=== PATIENT | female | born 1950 | race Caucasian/White ===

== ENCOUNTER 2018-07-24 08:40 | Observation (INO) | payer MEDICARE, BC ==
[2018-07-24] MEDS ORDERED: Sodium Chloride 0.9% 1,000 ML IV ONE (08:44)
[2018-07-24] MEDS ORDERED: Sodium Chloride 0.9% 10 ML Syringe FLUSH PRN ×2 (08:44→09:06)
[2018-07-24] MEDS ORDERED: Sodium Chloride 0.9% 2.5 ML Syringe FLUSH PRN ×2 (08:44→09:06)
--- NOTE | 2018-07-24 08:44 | EDM.PDOC ---
ED HPI GENERAL MEDICAL PROBLEM - General Chief Complaint: Cardiovascular Problem Stated Complaint: CLINIC Time Seen by Provider: 07/24/18 08:41 Source of Information: Reports: Patient History Limitations: Reports: No Limitations - History of Present Illness INITIAL COMMENTS - FREE TEXT/NARRATIVE: History of present illness: []She was recently put on any antihypertensive medicine and now presents hypotensive with a systolic blood pressure of 60 in the clinic during follow-up visit today. She was started on amlodipine this week and takes it at night. She has not taken any medications this morning. She was dizzy at the time and states that around 7 AM this morning she did have an episode of chest pain across her chest associated with dizziness, shortness of breath or sweating. She also complains of urinating several times during the night last night which she normally does not do. Patient does not currently have any chest pain. Review of systems: As per history of present illness and below otherwise all systems reviewed and negative. Past medical history: As per history of present illness and as reviewed below otherwise noncontributory. Surgical history: As per history of present illness and as reviewed below otherwise noncontributory. Social history: No reported history of drug or alcohol abuse. Family history: As per history of present illness and as reviewed below otherwise noncontributory. Physical exam: General: Well developed, well nourished in NAD HEENT: Atraumatic, normocephalic, pupils reactive, negative for conjunctival pallor or scleral icterus, mucous membranes moist, throat clear, neck supple, nontender, trachea midline. Lungs: Clear to auscultation, breath sounds equal bilaterally, chest nontender. Heart: S1S2, regular, negative for clicks, rubs, or JVD. Abdomen: NABS, Soft, nondistended, nontender. Negative for masses or hepatosplenomegaly. Negative for costovertebral tenderness. Pelvis: Stable nontender. Genitourinary: Deferred. Rectal: Deferred. Extremities: Atraumatic, negative for cords or calf pain. Neurovascular unremarkable. Neuro: Awake, alert, oriented. Cranial nerves II through XII unremarkable. Cerebellum unremarkable. Motor and sensory unremarkable throughout. Exam nonfocal. Skin:warm and dry Diagnostics: EKG, CBC, chemistry, troponin, chest x-ray UA Therapeutics: None ED Course: Stable Impression: Chest pain, uncontrolled blood pressure Prescriptions: None Plan: Admit for observation chest pain rule out Definitive disposition and diagnosis as appropriate pending reevaluation and review of above. Headache Pain Score (Numeric/FACES): 2 - Related Data Allergies Allergy/AdvReac Type Severity Reaction Status Date / Time No Known Allergies Allergy Verified 07/24/18 08:48 Home Meds: Home Meds . [No Known Home Meds] 07/24/18 [History] Past Medical History HEENT History: Reports: Other (See Below) Oncologic (Cancer) History: Reports: Squamous Cell Carcinoma Other Oncologic History: 2003-remission - Past Surgical History Oncologic Surgical History: Reports: None, Other (See Below) Social & Family History - Family History Cardiac: Reports: Heart Valve Replacement Respiratory: Reports: Asthma Endocrine/Metabolic: Reports: Diabetes, type II - Caffeine Use Caffeine Use: Reports: Coffee ED ROS GENERAL - Review of Systems Review Of Systems: ROS reveals no pertinent complaints other than HPI. ED EXAM, GENERAL - Physical Exam Exam: See Below (See history of present illness) Course - Vital Signs Last Recorded V/S: Last Vital Signs Temp 97.4 F 07/24/18 08:48 Pulse 80 07/24/18 12:21 Resp 14 07/24/18 12:21 BP 180/115 H 07/24/18 12:21 Pulse Ox 98 07/24/18 12:21 - Orders/Labs/Meds Orders: Active Orders 24 hr Category Date Time Status EKG Documentation Completion [RC] STAT Care 07/24/18 08:44 Active EKG Documentation Completion [RC] STAT Care 07/24/18 09:07 Inactive Sodium Chloride 0.9% [Saline Flush] Med 07/24/18 08:44 Active 10 ml FLUSH ASDIRECTED PRN Sodium Chloride 0.9% [Saline Flush] Med 07/24/18 09:06 Active 10 ml FLUSH ASDIRECTED PRN Sodium Chloride 0.9% [Saline Flush] Med 07/24/18 08:44 Active 2.5 ml FLUSH ASDIRECTED PRN Sodium Chloride 0.9% [Saline Flush] Med 07/24/18 09:06 Active 2.5 ml FLUSH ASDIRECTED PRN Saline Lock Insert [OM.PC] Stat Oth 07/24/18 08:44 Ordered Saline Lock Insert [OM.PC] Stat Ot 07/24/18 09:07 Ordered Medication Orders Acetaminophen (Tylenol) 650 mg PO Q4H PRN PRN Reason: Pain (Mild 1-3)/fever Enoxaparin Sodium (Lovenox) 40 mg SUBCUT Q24H [facility] Last Admin: 07/24/18 12:16 Dose: 40 mg Oxycodone HCl (Oxycodone) 5 mg PO Q4H PRN PRN Reason: Pain (moderate 4-6) Sodium Chloride (Saline Flush) 10 ml FLUSH ASDIRECTED PRN PRN Reason: Keep Vein Open Last Admin: 07/24/18 09:05 Dose: 10 ml Sodium Chloride (Saline Flush) 2.5 ml FLUSH ASDIRECTED PRN PRN Reason: Keep Vein Open Last Admin: 07/24/18 09:05 Dose: 2.5 ml Sodium Chloride (Saline Flush) 10 ml FLUSH ASDIRECTED PRN PRN Reason: Keep Vein Open Last Admin: 07/24/18 09:12 Dose: 10 ml Sodium Chloride (Saline Flush) 2.5 ml FLUSH ASDIRECTED PRN PRN Reason: Keep Vein Open Last Admin: 07/24/18 09:13 Dose: 2.5 ml Temazepam (Restoril) 15 mg PO BEDTIME PRN PRN Reason: Sleep Labs: Laboratory Tests 07/24/18 07/24/18 07/24/18 Range/Units 08:40 08:45 08:45 WBC 6.59 (4.0-11.0) K/uL RBC 4.62 (4.30-5.90) M/uL Hgb 13.7 (12.0-16.0) g/dL Hct 41.9 (36.0-46.0) % MCV 90.7 (80.0-98.0) fL MCH 29.7 (27.0-32.0) pg MCHC 32.7 (31.0-37.0) g/dL RDW Std Deviation 46.2 (28.0-62.0) fl RDW Coeff of Miley 14 (11.0-15.0) % Plt Count 200 (150-400) K/uL MPV 10.10 (7.40-12.00) fL Neut % (Auto) 81.7 H (48.0-80.0) % Lymph % (Auto) 8.0 L (16.0-40.0) % E[place] % (Auto) 9.6 (0.0-15.0) % Eos % (Auto) 0.2 (0.0-7.0) % Baso % (Auto) 0.5 (0.0-1.5) % Neut # (Auto) 5.4 (1.4-5.7) K/uL Lymph # (Auto) 0.5 L (0.6-2.4) K/uL [place] # (Auto) 0.6 (0.0-0.8) K/uL Eos # (Auto) 0.0 (0.0-0.7) K/uL Baso # (Auto) 0.0 (0.0-0.1) K/uL Nucleated RBC % 0.0 /100WBC Nucleated RBCs # 0 K/uL Sodium 137 (136-145) mmol/L Potassium 3.9 (3.5-5.1) mmol/L Chloride 99 (98-107) mmol/L Carbon Dioxide 27.3 (21.0-32.0) mmol/L BUN 15 (7.0-18.0) mg/dL Creatinine 0.9 (0.6-1.0) mg/dL Est Cr Clr Drug Dosing 55.33 mL/min Estimated GFR (MDRD) > 60.0 ml/min Glucose 118 H (74-106) mg/dL Calcium 9.1 (8.5-10.1) mg/dL Total Bilirubin 0.5 (0.2-1.0) mg/dL AST 25 (15-37) IU/L ALT 22 (14-63) IU/L Alkaline Phosphatase 62 (46-116) U/L Troponin I (0.000-0.056) ng/mL Total Protein 7.6 (6.4-8.2) g/dL Albumin 4.0 (3.4-5.0) g/dL Globulin 3.6 (2.6-4.0) g/dL Albumin/Globulin Ratio 1.1 (0.9-1.6) Urine Color YELLOW Urine Appearance HAZY Urine pH 7.0 (5.0-8.0) Ur Specific [place] 1.015 (1.001-1.035) Urine Protein NEGATIVE (NEGATIVE) mg/dL Urine Glucose (UA) NEGATIVE (NEGATIVE) mg/dL Urine Ketones NEGATIVE (NEGATIVE) mg/dL Urine Occult Blood TRACE-INTACT H (NEGATIVE) Urine Nitrite NEGATIVE (NEGATIVE) Urine Bilirubin NEGATIVE (NEGATIVE) Urine Urobilinogen 1.0 (<2.0) EU/dL Ur Leukocyte Esterase NEGATIVE (NEGATIVE) Urine RBC 0-3 (0-2/HPF) Urine WBC 0-3 (0-5/HPF) Ur Epithelial Cells FEW (NONE-FEW) Urine Bacteria FEW (NEGATIVE) 07/24/18 Range/Units 08:45 WBC (4.0-11.0) K/uL RBC (4.30-5.90) M/uL Hgb (12.0-16.0) g/dL Hct (36.0-46.0) % MCV (80.0-98.0) fL MCH (27.0-32.0) pg MCHC (31.0-37.0) g/dL RDW Std Deviation (28.0-62.0) fl RDW Coeff of Miley (11.0-15.0) % Plt Count (150-400) K/uL MPV (7.40-12.00) fL Neut % (Auto) (48.0-80.0) % Lymph % (Auto) (16.0-40.0) % E[place] % (Auto) (0.0-15.0) % Eos % (Auto) (0.0-7.0) % Baso % (Auto) (0.0-1.5) % Neut # (Auto) (1.4-5.7) K/uL Lymph # (Auto) (0.6-2.4) K/uL [place] # (Auto) (0.0-0.8) K/uL Eos # (Auto) (0.0-0.7) K/uL Baso # (Auto) (0.0-0.1) K/uL Nucleated RBC % /100WBC Nucleated RBCs # K/uL Sodium (136-145) mmol/L Potassium (3.5-5.1) mmol/L Chloride (98-107) mmol/L Carbon Dioxide (21.0-32.0) mmol/L BUN (7.0-18.0) mg/dL Creatinine (0.6-1.0) mg/dL Est Cr Clr Drug Dosing mL/min Estimated GFR (MDRD) ml/min Glucose (74-106) mg/dL Calcium (8.5-10.1) mg/dL Total Bilirubin (0.2-1.0) mg/dL AST (15-37) IU/L ALT (14-63) IU/L Alkaline Phosphatase (46-116) U/L Troponin I < 0.050 (0.000-0.056) ng/mL Total Protein (6.4-8.2) g/dL Albumin (3.4-5.0) g/dL Globulin (2.6-4.0) g/dL Albumin/Globulin Ratio (0.9-1.6) Urine Color Urine Appearance Urine pH (5.0-8.0) Ur Specific [place] (1.001-1.035) Urine Protein (NEGATIVE) mg/dL Urine Glucose (UA) (NEGATIVE) mg/dL Urine Ketones (NEGATIVE) mg/dL Urine Occult Blood (NEGATIVE) Urine Nitrite (NEGATIVE) Urine Bilirubin (NEGATIVE) Urine Urobilinogen (<2.0) EU/dL Ur Leukocyte Esterase (NEGATIVE) Urine RBC (0-2/HPF) Urine WBC (0-5/HPF) Ur Epithelial Cells (NONE-FEW) Urine Bacteria (NEGATIVE) Meds: Medications Generic Name Dose Route Start Last Admin Trade Name Freq PRN Reason Stop Dose Admin Acetaminophen 650 mg 07/24/18 11:42 Tylenol PO Q4H PRN Pain (Mild 1-3)/fever Enoxaparin Sodium 40 mg 07/24/18 11:45 07/24/18 12:16 Lovenox SUBCUT 40 mg Q24H BRI Administration Oxycodone HCl 5 mg 07/24/18 11:42 Oxycodone PO Q4H PRN Pain (moderate 4-6) Sodium Chloride 10 ml 07/24/18 08:44 07/24/18 09:05 Saline Flush FLUSH 10 ml ASDIRECTED PRN Administration Keep Vein Open Sodium Chloride 2.5 ml 07/24/18 08:44 07/24/18 09:05 Saline Flush FLUSH 2.5 ml ASDIRECTED PRN Administration Keep Vein Open Sodium Chloride 10 ml 07/24/18 09:06 07/24/18 09:12 Saline Flush FLUSH 10 ml ASDIRECTED PRN Administration Keep Vein Open Sodium Chloride 2.5 ml 07/24/18 09:06 07/24/18 09:13 Saline Flush FLUSH 2.5 ml ASDIRECTED PRN Administration Keep Vein Open Temazepam 15 mg 07/24/18 11:42 Restoril PO BEDTIME PRN Sleep Discontinued Medications Generic Name Dose Route Start Last Admin Trade Name Freq PRN Reason Stop Dose Admin Sodium Chloride 1,000 mls @ 999 mls/hr 07/24/18 08:44 07/24/18 09:05 Normal Saline IV 07/24/18 09:44 999 mls/hr .Bolus ONE Administration Departure - Departure Time of Disposition: 12:37 Disposition: Refer to Observation Condition: Good Clinical Impression: Chest pain - My Orders Last 24 Hours: My Active Orders 07/24/18 08:44 EKG Documentation Completion [RC] STAT Sodium Chloride 0.9% [Saline Flush] 10 ml FLUSH ASDIRECTED PRN Sodium Chloride 0.9% [Saline Flush] 2.5 ml FLUSH ASDIRECTED PRN Saline Lock Insert [OM.PC] Stat 07/24/18 09:06 Sodium Chloride 0.9% [Saline Flush] 10 ml FLUSH ASDIRECTED PRN Sodium Chloride 0.9% [Saline Flush] 2.5 ml FLUSH ASDIRECTED PRN 07/24/18 09:07 EKG Documentation Completion [RC] STAT Saline Lock Insert [OM.PC] Stat - Assessment/Plan Last 24 Hours: My Active Orders 07/24/18 08:44 EKG Documentation Completion [RC] STAT Sodium Chloride 0.9% [Saline Flush] 10 ml FLUSH ASDIRECTED PRN Sodium Chloride 0.9% [Saline Flush] 2.5 ml FLUSH ASDIRECTED PRN Saline Lock Insert [OM.PC] Stat 07/24/18 09:06 Sodium Chloride 0.9% [Saline Flush] 10 ml FLUSH ASDIRECTED PRN Sodium Chloride 0.9% [Saline Flush] 2.5 ml FLUSH ASDIRECTED PRN 07/24/18 09:07 EKG Documentation Completion [RC] STAT Saline Lock Insert [OM.PC] Stat
[2018-07-24 09:39] LABS: CHLORIDE,CL 99 mmol/L (98-107); SODIUM,NA 137 mmol/L (136-145)
[2018-07-24] MEDS ORDERED: Temazepam 15 MG Cap PO PRN (11:42)
[2018-07-24] MEDS ORDERED: oxyCODONE 5 MG Tab PO PRN (11:42)
--- NOTE | 2018-07-24 11:51 | PCM.HP ---
H&P History of Present Illness - General Date of Service: 07/24/18 Admit Problem/Dx: Admission Diagnosis/Problem Admission Diagnosis/Problem Chest pain Source of Information: Patient History Limitations: Reports: No Limitations - History of Present Illness Initial Comments - Free Text/Narative: The patient is a 67-year-old lady who had presented to the emergency department from her primary care physician's office secondary to hypotension. The patient had been recently started on amlodipine. Patient says that she has had a previous workup for orthostatic hypotension. The patient also had severe dizziness associated with this episode. In the emergency department the patient' s blood pressure had rebounded to 180/115 mmHg. While in the physician's office her blood pressure was found to be 60 mmHg systolic. The patient says today that she feels good. She has no complaint. She had chest pain earlier but this has resolved. The patient has no other complaints presently. Onset of Symptoms: Reports: Sudden Duration of Symptoms: Reports: Hour(s):, Resolved Prior to Arrival Location: Reports: Chest Quality: Reports: Ache Severity: Mild Improves with: Reports: None Worsens with: Reports: None Context: Reports: Sick Contact Associated Symptoms: Reports: No Other Symptoms Headache Pain Score (Numeric/FACES): 2 - Related Data Allergies/Adverse Reactions: Allergies Allergy/AdvReac Type Severity Reaction Status Date / Time No Known Allergies Allergy Verified 07/24/18 08:48 Home Medications: Home Meds Aspirin [Adult Low Dose Aspirin EC] 81 mg PO DAILY 07/24/18 [History] amLODIPine Besylate [Amlodipine Besylate] 5 mg PO DAILY 07/24/18 [History] Past Medical History HEENT History: Reports: Other (See Below) Cardiovascular History: Reports: None Respiratory History: Reports: None Gastrointestinal History: Reports: None Genitourinary History: Reports: None [employer] History: Reports: Musculoskeletal History: Reports: None Neurological History: Reports: None Psychiatric History: Reports: None Endocrine/Metabolic History: Reports: None Hematologic History: Reports: None Immunologic History: Reports: None Oncologic (Cancer) History: Reports: Squamous Cell Carcinoma Other Oncologic History: 2003-remission Dermatologic History: Reports: None - Infectious Disease History Infectious Disease History: Reports: Chicken Pox, Measles, Mumps - Past Surgical History Oncologic Surgical History: Reports: None, Other (See Below) Social & Family History - Family History Family Medical History: Noncontributory Cardiac: Reports: Heart Valve Replacement Respiratory: Reports: Asthma Endocrine/Metabolic: Reports: Diabetes, type II - Tobacco Use Smoking Status *Q: Never Smoker Second Hand Smoke Exposure: No - Caffeine Use Caffeine Use: Reports: Coffee - Recreational Drug Use Recreational Drug Use: No H&P Review of Systems - Review of Systems: Review Of Systems: See Below General: Reports: No Symptoms HEENT: Reports: No Symptoms Pulmonary: Reports: No Symptoms Cardiovascular: Reports: Lightheadedness, Blood Pressure Problem Gastrointestinal: Reports: No Symptoms Genitourinary: Reports: No Symptoms Musculoskeletal: Reports: No Symptoms Skin: Reports: No Symptoms Psychiatric: Reports: No Symptoms Neurological: Reports: No Symptoms Hematologic/Lymphatic: Reports: No Symptoms Immunologic: Reports: No Symptoms Exam - Exam Exam: See Below - Vital Signs Vital Signs: Last Vital Signs Temp 36.3 C 07/24/18 08:48 Pulse 71 07/24/18 11:27 Resp 12 07/24/18 11:27 BP 133/82 07/24/18 11:27 Pulse Ox 98 07/24/18 11:27 Weight: 61.689 kg - Exam Quality Assessment: No: Supplemental Oxygen General: Alert, Oriented, Cooperative HEENT: Conjunctiva Clear, EACs Clear, EOMI, Hearing Intact, Nares Patent, Pupils Equal, PERRLA. No: Mucosa Moist & [employer] (Dry, due to radiation for squamous cell carcinoma) Neck: Supple, Trachea Midline, Carotid Bruit (On the left side), Other ( Postsurgical changes) Lungs: Clear to Auscultation, Normal Respiratory Effort Cardiovascular: Regular Rate, Regular Rhythm GI/Abdominal Exam: Normal Bowel Sounds, Soft, Non-Tender, No Distention Back Exam: Normal Inspection, Full Range of Motion Extremities: Normal Inspection, Normal Range of Motion, No Pedal Edema Skin: Warm, Dry, Intact Neurological: Cranial Nerves Intact Neuro Extensive - Mental Status: Alert, Oriented x3 Psychiatric: Alert, Normal Affect, Normal Mood - Patient Data Lab Results Last 24 hrs: Laboratory Results - last 24 hr 07/24/18 07/24/18 07/24/18 Range/Units 08:40 08:45 08:45 WBC 6.59 (4.0-11.0) K/uL RBC 4.62 (4.30-5.90) M/uL Hgb 13.7 (12.0-16.0) g/dL Hct 41.9 (36.0-46.0) % MCV 90.7 (80.0-98.0) fL MCH 29.7 (27.0-32.0) pg MCHC 32.7 (31.0-37.0) g/dL RDW Std Deviation 46.2 (28.0-62.0) fl RDW Coeff of Miley 14 (11.0-15.0) % Plt Count 200 (150-400) K/uL MPV 10.10 (7.40-12.00) fL Neut % (Auto) 81.7 H (48.0-80.0) % Lymph % (Auto) 8.0 L (16.0-40.0) % [place] % (Auto) 9.6 (0.0-15.0) % Eos % (Auto) 0.2 (0.0-7.0) % Baso % (Auto) 0.5 (0.0-1.5) % Neut # (Auto) 5.4 (1.4-5.7) K/uL Lymph # (Auto) 0.5 L (0.6-2.4) K/uL [place] # (Auto) 0.6 (0.0-0.8) K/uL Eos # (Auto) 0.0 (0.0-0.7) K/uL Baso # (Auto) 0.0 (0.0-0.1) K/uL Nucleated RBC % 0.0 /100WBC Nucleated RBCs # 0 K/uL Sodium 137 (136-145) mmol/L Potassium 3.9 (3.5-5.1) mmol/L Chloride 99 (98-107) mmol/L Carbon Dioxide 27.3 (21.0-32.0) mmol/L BUN 15 (7.0-18.0) mg/dL Creatinine 0.9 (0.6-1.0) mg/dL Est Cr Clr Drug Dosing 55.33 mL/min Estimated GFR (MDRD) > 60.0 ml/min Glucose 118 H (74-106) mg/dL Calcium 9.1 (8.5-10.1) mg/dL Total Bilirubin 0.5 (0.2-1.0) mg/dL AST 25 (15-37) IU/L ALT 22 (14-63) IU/L Alkaline Phosphatase 62 (46-116) U/L Troponin I (0.000-0.056) ng/mL Total Protein 7.6 (6.4-8.2) g/dL Albumin 4.0 (3.4-5.0) g/dL Globulin 3.6 (2.6-4.0) g/dL Albumin/Globulin Ratio 1.1 (0.9-1.6) Urine Color YELLOW Urine Appearance HAZY Urine pH 7.0 (5.0-8.0) Ur Specific [place] 1.015 (1.001-1.035) Urine Protein NEGATIVE (NEGATIVE) mg/dL Urine Glucose (UA) NEGATIVE (NEGATIVE) mg/dL Urine Ketones NEGATIVE (NEGATIVE) mg/dL Urine Occult Blood TRACE-INTACT H (NEGATIVE) Urine Nitrite NEGATIVE (NEGATIVE) Urine Bilirubin NEGATIVE (NEGATIVE) Urine Urobilinogen 1.0 (<2.0) EU/dL Ur Leukocyte Esterase NEGATIVE (NEGATIVE) Urine RBC 0-3 (0-2/HPF) Urine WBC 0-3 (0-5/HPF) Ur Epithelial Cells FEW (NONE-FEW) Urine Bacteria FEW (NEGATIVE) 07/24/18 Range/Units 08:45 WBC (4.0-11.0) K/uL RBC (4.30-5.90) M/uL Hgb (12.0-16.0) g/dL Hct (36.0-46.0) % MCV (80.0-98.0) fL MCH (27.0-32.0) pg MCHC (31.0-37.0) g/dL RDW Std Deviation (28.0-62.0) fl RDW Coeff of Miley (11.0-15.0) % Plt Count (150-400) K/uL MPV (7.40-12.00) fL Neut % (Auto) (48.0-80.0) % Lymph % (Auto) (16.0-40.0) % [place] % (Auto) (0.0-15.0) % Eos % (Auto) (0.0-7.0) % Baso % (Auto) (0.0-1.5) % Neut # (Auto) (1.4-5.7) K/uL Lymph # (Auto) (0.6-2.4) K/uL [place] # (Auto) (0.0-0.8) K/uL Eos # (Auto) (0.0-0.7) K/uL Baso # (Auto) (0.0-0.1) K/uL Nucleated RBC % /100WBC Nucleated RBCs # K/uL Sodium (136-145) mmol/L Potassium (3.5-5.1) mmol/L Chloride (98-107) mmol/L Carbon Dioxide (21.0-32.0) mmol/L BUN (7.0-18.0) mg/dL Creatinine (0.6-1.0) mg/dL Est Cr Clr Drug Dosing mL/min Estimated GFR (MDRD) ml/min Glucose (74-106) mg/dL Calcium (8.5-10.1) mg/dL Total Bilirubin (0.2-1.0) mg/dL AST (15-37) IU/L ALT (14-63) IU/L Alkaline Phosphatase (46-116) U/L Troponin I < 0.050 (0.000-0.056) ng/mL Total Protein (6.4-8.2) g/dL Albumin (3.4-5.0) g/dL Globulin (2.6-4.0) g/dL Albumin/Globulin Ratio (0.9-1.6) Urine Color Urine Appearance Urine pH (5.0-8.0) Ur Specific [place] (1.001-1.035) Urine Protein (NEGATIVE) mg/dL Urine Glucose (UA) (NEGATIVE) mg/dL Urine Ketones (NEGATIVE) mg/dL Urine Occult Blood (NEGATIVE) Urine Nitrite (NEGATIVE) Urine Bilirubin (NEGATIVE) Urine Urobilinogen (<2.0) EU/dL Ur Leukocyte Esterase (NEGATIVE) Urine RBC (0-2/HPF) Urine WBC (0-5/HPF) Ur Epithelial Cells (NONE-FEW) Urine Bacteria (NEGATIVE) Result Diagrams: 07/24/18 08:45 07/24/18 08:45 - Problem List (1) Chest pain SNOMED Code(s): 60093746 ICD Code: R07.9 - CHEST PAIN, UNSPECIFIED Status: Acute Current Visit: Yes (2) Orthostatic hypotension SNOMED Code(s): 43671162 ICD Code: I95.1 - ORTHOSTATIC HYPOTENSION Status: Acute Current Visit: Yes (3) History of squamous cell carcinoma SNOMED Code(s): 60713192597364 ICD Code: Z85.89 - PERSONAL HISTORY OF MALIGNANT NEOPLASM OF ORGANS AND SYSTEMS Status: Chronic Priority: Medium Current Visit: Yes (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 - CHRONIC LARYNGITIS Status: Chronic Priority: Medium Current Visit: Yes (5) Hypertension SNOMED Code(s): 82674970 ICD Code: I10 - ESSENTIAL (PRIMARY) HYPERTENSION Status: Acute Priority: High Current Visit: Yes Qualifiers: Hypertension type: essential hypertension Qualified Code(s): I10 - Essential (primary) hypertension (6) Carotid stenosis, left SNOMED Code(s): 715104357244542 ICD Code: I65.22 - OCCLUSION AND STENOSIS OF LEFT CAROTID ARTERY Status: Acute Current Visit: Yes Problem List Initiated/Reviewed/Updated: Yes Orders Last 24hrs: Active Orders 24 hr Category Date Time Status Patient Status [ADT] Stat ADT 07/24/18 11:31 Active Cardiac Monitoring [RC] CONTINUOUS Care 07/24/18 11:43 Active EKG Documentation Completion [RC] AM Care 07/25/18 08:00 Active EKG Documentation Completion [RC] STAT Care 07/24/18 08:44 Active EKG Documentation Completion [RC] STAT Care 07/24/18 09:07 Inactive Oxygen Therapy [RC] PRN Care 07/24/18 11:42 Active Oxygen Therapy [RC] PRN Care 07/24/18 11:49 Active Up ad Cathie [RC] ASDIRECTED Care 07/24/18 11:42 Active VTE/DVT Education [RC] PER UNIT ROUTINE Care 07/24/18 11:42 Active VTE/DVT Education [RC] PER UNIT ROUTINE Care 07/24/18 11:49 Active Vital Signs [RC] Q4H Care 07/24/18 11:42 Active Vital Signs [RC] Q4H Care 07/24/18 11:49 Active Heart Healthy Diet [DIET] Diet 07/24/18 Dinner Active CBC WITH AUTO DIFF [HEME] AM Lab 07/25/18 05:11 Ordered COMPREHENSIVE METABOLIC PN,CMP [CHEM] AM Lab 07/25/18 05:11 Ordered TROPONIN I [CHEM] Q6H Lab 07/24/18 11:42 Ordered TROPONIN I [CHEM] Q6H Lab 07/24/18 17:42 Ordered Acetaminophen [Tylenol] Med 07/24/18 11:42 Active 650 mg PO Q4H PRN Enoxaparin [Lovenox] Med 07/24/18 11:45 Active 40 mg SUBCUT Q24H Sodium Chloride 0.9% [Saline Flush] Med 07/24/18 08:44 Active 10 ml FLUSH ASDIRECTED PRN Sodium Chloride 0.9% [Saline Flush] Med 07/24/18 09:06 Active 10 ml FLUSH ASDIRECTED PRN Sodium Chloride 0.9% [Saline Flush] Med 07/24/18 08:44 Active 2.5 ml FLUSH ASDIRECTED PRN Sodium Chloride 0.9% [Saline Flush] Med 07/24/18 09:06 Active 2.5 ml FLUSH ASDIRECTED PRN Temazepam [Restoril] Med 07/24/18 11:42 Active 15 mg PO BEDTIME PRN oxyCODONE Med 07/24/18 11:42 Active 5 mg PO Q4H PRN Saline Lock Insert [OM.PC] Stat Oth 07/24/18 08:44 Ordered Saline Lock Insert [OM.PC] Stat Ot 07/24/18 09:07 Ordered Resuscitation Status Routine Resus Stat 07/24/18 11:42 Ordered Medication Orders Acetaminophen (Tylenol) 650 mg PO Q4H PRN PRN Reason: Pain (Mild 1-3)/fever Enoxaparin Sodium (Lovenox) 40 mg SUBCUT Q24H BRI Oxycodone HCl (Oxycodone) 5 mg PO Q4H PRN PRN Reason: Pain (moderate 4-6) Sodium Chloride (Saline Flush) 10 ml FLUSH ASDIRECTED PRN PRN Reason: Keep Vein Open Last Admin: 07/24/18 09:05 Dose: 10 ml Sodium Chloride (Saline Flush) 2.5 ml FLUSH ASDIRECTED PRN PRN Reason: Keep Vein Open Last Admin: 07/24/18 09:05 Dose: 2.5 ml Sodium Chloride (Saline Flush) 10 ml FLUSH ASDIRECTED PRN PRN Reason: Keep Vein Open Last Admin: 07/24/18 09:12 Dose: 10 ml Sodium Chloride (Saline Flush) 2.5 ml FLUSH ASDIRECTED PRN PRN Reason: Keep Vein Open Last Admin: 07/24/18 09:13 Dose: 2.5 ml Temazepam (Restoril) 15 mg PO BEDTIME PRN PRN Reason: Sleep Assessment/Plan Comment:: The patient is a 67-year-old lady will be admitted to observation secondary to chest pain as a result of hypotension. The patient will be kept on continuous telemetry. She also have her vital signs monitored and her blood pressure medication will be adjusted accordingly. The patient will have her amlodipine discontinued for now. The patient is aware of her orthostatic hypotension and how sensitive her blood pressure has been to either low or highs. The patient has been encouraged to ambulate. She'll be kept on a regular heart healthy diet as tolerated. The patient also has been noted to have a left-sided carotid bruit indicative of a clinical diagnosis of carotid stenosis. I've ordered a ultrasound of her carotid arteries to assess the degree of stenosis. The patient will be recommended to continue to follow-up with her primary care physician upon discharge. The patient should be appropriate for discharge in the morning depending on troponins that have been ordered as well as repeat EKG in the morning.
[2018-07-24] MEDS: Enoxaparin 40 MG/0.4 ML Syringe SUBCUT SCH (12:16)
[2018-07-24] MEDS: Acetaminophen 325 MG Tab PO PRN (16:11)
--- NOTE | 2018-07-24 16:16 | US ---
EXAMINATION: Carotid US with brito scale and duplex imaging. HISTORY: Carotid stenosis FINDINGS: Ultrasound examination of bilateral cervical carotid arteries was performed using brito scale and duplex imaging. Minimal atheromatous changes noted within the carotid arteries. Antegrade flow noted within the vertebrals. These are the peak velocities in cm per second (systole), right and left respectively, by a comma: CCA (common carotid artery) - 88, 76 ICA (internal carotid artery) - 74, 73 ECA (External carotid artery) - 80, 107 ICA/CCA systolic ratio Right - 0.8 Left - 1. IMPRESSION: No significant stenosis or elevated velocities noted within the internal carotid arteries bilaterally.
[2018-07-24] MEDS ORDERED: Sodium Chloride 0.9% 500 ML IV ONE (18:30)
[2018-07-25 06:48] LABS: CHLORIDE,CL 102 mmol/L (98-107); SODIUM,NA 138 mmol/L (136-145)
[2018-07-25] MEDS: Acetaminophen 325 MG Tab PO PRN (09:01)
--- NOTE | 2018-07-25 09:57 | PCM.DCSUM1 ---
Discharge Summary - Hospital Course Diagnosis: Stroke: No - Discharge Data Discharge Date: 07/25/18 Discharge Disposition: Home, Self-Care 01 Condition: Good - Discharge Diagnosis/Problem(s) (1) Chest pain SNOMED Code(s): 88553839 ICD Code: R07.9 - CHEST PAIN, UNSPECIFIED Status: Resolved Qualifiers: Chest pain type: intercostal pain Qualified Code(s): R07.82 - Intercostal pain (2) Orthostatic hypotension SNOMED Code(s): 02361235 ICD Code: I95.1 - ORTHOSTATIC HYPOTENSION Status: Chronic Priority: High (3) History of squamous cell carcinoma SNOMED Code(s): 83915786899716 ICD Code: Z85.89 - PERSONAL HISTORY OF MALIGNANT NEOPLASM OF ORGANS AND SYSTEMS Status: Chronic Priority: Medium (4) Sicca laryngitis SNOMED Code(s): 42976512 ICD Code: J37.0 - CHRONIC LARYNGITIS Status: Chronic Priority: Medium (5) Hypertension SNOMED Code(s): 82364575 ICD Code: I10 - ESSENTIAL (PRIMARY) HYPERTENSION Status: Chronic Priority : High Qualifiers: Hypertension type: essential hypertension Qualified Code(s): I10 - Essential (primary) hypertension (6) Carotid stenosis, left SNOMED Code(s): 944015600117845 ICD Code: I65.22 - OCCLUSION AND STENOSIS OF LEFT CAROTID ARTERY Status: Chronic Priority: Medium - Patient Summary/Data Hospital Course: The patient is a 67-year-old lady who was admitted through the emergency department after she had a follow-up with her primary care physician. Initially the patient had systolic blood pressure of 60 mmHg and in the emergency department her blood pressure had elevated to 180/115 mmHg. It was also noted during the discussion in the emergency room that the patient had chest pain during her episode of hypertension. As a result of this the patient was admitted for evaluation of this. The patient previously had been on very low- dose of amlodipine at 2.5 mg by mouth daily. This was discontinued during the evaluation for her blood pressure. During initial conversation the patient also reported that she had been previously diagnosed with orthostatic hypotension. During the hospitalization the patient's blood pressure had ranged from 179/88 mmHg down to 88/47 mmHg. The patient has had episodes of dizziness and lightheadedness during her incidences of hypotension. Also, interestingly enough the patient says that she will take extra oral salt when her blood pressure is low help bring it back up. The patient had been otherwise hemodynamically stable. On physical examination the patient was noted to have a left-sided carotid bruit and an ultrasound was also obtained which did not show any significant carotid stenosis. She had improved during the short course of hospitalization. The patient was placed on clonidine 0.1 mg by mouth every 12 hours when necessary during times of hypertension with her systolic blood pressure greater than 1 60 mmHg. The patient does check her blood pressure frequently. The patient had been tolerating her diet and she has been recommended to continue with a heart healthy diet as tolerated. The patient is also to have activity as tolerated. She is to follow-up with her primary care physician. The patient has been hemodynamically stable and she is discharged from acute hospitalization with recommendations listed above. - Patient Instructions Diet: Heart Healthy Diet Activity: As Tolerated Notify Provider of: Fever, Increased Pain - Discharge Plan *PRESCRIPTION DRUG MONITORING PROGRAM REVIEWED*: No *COPY OF PRESCRIPTION DRUG MONITORING REPORT IN PATIENT ANA: No Prescriptions/Med Rec: cloNIDine [Catapres] 0.1 mg PO Q12HR PRN #15 tab PRN Reason: Hypertension Home Medications: Home Meds Aspirin [Adult Low Dose Aspirin EC] 81 mg PO DAILY 07/24/18 [History] cloNIDine [Catapres] 0.1 mg PO Q12HR PRN #15 tab 07/25/18 [Rx] Oxygen Therapy Mode: Room Air Patient Handouts: Orthostatic Hypotension, Hypotension, [id number], Nonspecific Chest Pain, Clonidine tablets Referrals: Zach Pompa MD [Primary Care Provider] - 08/19/18 4:00 pm - Discharge Summary/Plan Comment DC Time >30 min.: Yes - General Info Date of Service: 07/25/18 Admission Dx/Problem (Free Text: Admission Diagnosis/Problem Admission Diagnosis/Problem Chest pain, orthostatic hypertension Subjective Update: The patient is doing better. Functional Status: Reports: Pain Controlled - Review of Systems General: Reports: No Symptoms HEENT: Reports: No Symptoms Pulmonary: Reports: No Symptoms Cardiovascular: Reports: No Symptoms Gastrointestinal: Reports: No Symptoms Genitourinary: Reports: No Symptoms Musculoskeletal: Reports: No Symptoms Skin: Reports: No Symptoms Neurological: Reports: No Symptoms Psychiatric: Reports: No Symptoms - Patient Data Vitals - Most Recent: Last Vital Signs Temp 37.4 C 07/25/18 08:00 Pulse 82 07/25/18 08:00 Resp 16 07/25/18 08:00 BP 102/52 L 07/25/18 08:00 Pulse Ox 92 L 07/25/18 08:00 Weight - Most Recent: 61.689 kg I&O - Last 24 hours: Intake & Output 07/24/18 07/25/18 07/25/18 22:59 06:59 14:59 Intake Total 500 1150 Output Total 1500 Balance 500 -350 Lab Results - Last 24 hrs: Laboratory Results - last 24 hr 07/24/18 07/24/18 07/25/18 Range/Units 12:03 17:54 06:05 WBC 6.74 (4.0-11.0) K/uL RBC 4.14 L (4.30-5.90) M/uL Hgb 12.2 (12.0-16.0) g/dL Hct 36.8 (36.0-46.0) % MCV 88.9 (80.0-98.0) fL MCH 29.5 (27.0-32.0) pg MCHC 33.2 (31.0-37.0) g/dL RDW Std Deviation 45.3 (28.0-62.0) fl RDW Coeff of Miley 14 (11.0-15.0) % Plt Count 167 (150-400) K/uL MPV 9.90 (7.40-12.00) fL Neut % (Auto) 82.9 H (48.0-80.0) % Lymph % (Auto) 10.8 L (16.0-40.0) % [place] % (Auto) 5.8 (0.0-15.0) % Eos % (Auto) 0.1 (0.0-7.0) % Baso % (Auto) 0.4 (0.0-1.5) % Neut # (Auto) 5.6 (1.4-5.7) K/uL Lymph # (Auto) 0.7 (0.6-2.4) K/uL [place] # (Auto) 0.4 (0.0-0.8) K/uL Eos # (Auto) 0.0 (0.0-0.7) K/uL Baso # (Auto) 0.0 (0.0-0.1) K/uL Nucleated RBC % 0.0 /100WBC Nucleated RBCs # 0 K/uL Sodium (136-145) mmol/L Potassium (3.5-5.1) mmol/L Chloride (98-107) mmol/L Carbon Dioxide (21.0-32.0) mmol/L BUN (7.0-18.0) mg/dL Creatinine (0.6-1.0) mg/dL Est Cr Clr Drug Dosing mL/min Estimated GFR (MDRD) ml/min Glucose (74-106) mg/dL Calcium (8.5-10.1) mg/dL Total Bilirubin (0.2-1.0) mg/dL AST (15-37) IU/L ALT (14-63) IU/L Alkaline Phosphatase (46-116) U/L Troponin I < 0.050 < 0.050 (0.000-0.056) ng/mL Total Protein (6.4-8.2) g/dL Albumin (3.4-5.0) g/dL Globulin (2.6-4.0) g/dL Albumin/Globulin Ratio (0.9-1.6) / Range/Units 06:05 WBC (4.0-11.0) K/uL RBC (4.30-5.90) M/uL Hgb (12.0-16.0) g/dL Hct (36.0-46.0) % MCV (80.0-98.0) fL MCH (27.0-32.0) pg MCHC (31.0-37.0) g/dL RDW Std Deviation (28.0-62.0) fl RDW Coeff of Miley (11.0-15.0) % Plt Count (150-400) K/uL MPV (7.40-12.00) fL Neut % (Auto) (48.0-80.0) % Lymph % (Auto) (16.0-40.0) % [place] % (Auto) (0.0-15.0) % Eos % (Auto) (0.0-7.0) % Baso % (Auto) (0.0-1.5) % Neut # (Auto) (1.4-5.7) K/uL Lymph # (Auto) (0.6-2.4) K/uL [place] # (Auto) (0.0-0.8) K/uL Eos # (Auto) (0.0-0.7) K/uL Baso # (Auto) (0.0-0.1) K/uL Nucleated RBC % /100WBC Nucleated RBCs # K/uL Sodium 138 (136-145) mmol/L Potassium 3.4 L (3.5-5.1) mmol/L Chloride 102 (98-107) mmol/L Carbon Dioxide 28.9 (21.0-32.0) mmol/L BUN 13 (7.0-18.0) mg/dL Creatinine 0.8 (0.6-1.0) mg/dL Est Cr Clr Drug Dosing 62.24 mL/min Estimated GFR (MDRD) > 60.0 ml/min Glucose 115 H (74-106) mg/dL Calcium 8.7 (8.5-10.1) mg/dL Total Bilirubin 0.5 (0.2-1.0) mg/dL AST 30 (15-37) IU/L ALT 28 (14-63) IU/L Alkaline Phosphatase 55 (46-116) U/L Troponin I (0.000-0.056) ng/mL Total Protein 6.5 (6.4-8.2) g/dL Albumin 3.3 L (3.4-5.0) g/dL Globulin 3.2 (2.6-4.0) g/dL Albumin/Globulin Ratio 1.0 (0.9-1.6) Med Orders - Current: Current Medications Acetaminophen (Tylenol) 650 mg PO Q4H PRN PRN Reason: Pain (Mild 1-3)/fever Last Admin: 07/25/18 09:01 Dose: 650 mg Enoxaparin Sodium (Lovenox) 40 mg SUBCUT Q24H [facility] Last Admin: 07/24/18 12:16 Dose: 40 mg Oxycodone HCl (Oxycodone) 5 mg PO Q4H PRN PRN Reason: Pain (moderate 4-6) Sodium Chloride (Saline Flush) 10 ml FLUSH ASDIRECTED PRN PRN Reason: Keep Vein Open Last Admin: 07/24/18 09:05 Dose: 10 ml Sodium Chloride (Saline Flush) 2.5 ml FLUSH ASDIRECTED PRN PRN Reason: Keep Vein Open Last Admin: 07/24/18 09:05 Dose: 2.5 ml Sodium Chloride (Saline Flush) 10 ml FLUSH ASDIRECTED PRN PRN Reason: Keep Vein Open Last Admin: 07/24/18 09:12 Dose: 10 ml Sodium Chloride (Saline Flush) 2.5 ml FLUSH ASDIRECTED PRN PRN Reason: Keep Vein Open Last Admin: 07/24/18 09:13 Dose: 2.5 ml Temazepam (Restoril) 15 mg PO BEDTIME PRN PRN Reason: Sleep Discontinued Medications Sodium Chloride (Normal Saline) 1,000 mls @ 999 mls/hr IV .Bolus ONE Stop: 07/24/18 09:44 Last Admin: 07/24/18 09:05 Dose: 999 mls/hr Sodium Chloride (Normal Saline) 500 mls @ 500 mls/hr IV ONETIME ONE Stop: 07/24/18 19:29 Last Admin: 07/24/18 18:40 Dose: 500 mls/hr - Exam Quality Assessment: Denies: Supplemental Oxygen General: Reports: Alert, Oriented, Cooperative, No Acute Distress HEENT: Reports: Pupils Equal, Pupils Reactive, EOMI Neck: Reports: Supple, Trachea Midline, Carotid Bruit (Left side) Lungs: Reports: Clear to Auscultation, Normal Respiratory Effort Cardiovascular: Reports: Regular Rate, Regular Rhythm GI/Abdominal Exam: Normal Bowel Sounds, Soft, Non-Tender, No Distention Back Exam: Reports: Normal Inspection, Full Range of Motion Extremities: Normal Inspection, Normal Range of Motion, No Pedal Edema Skin: Reports: Warm, Dry, Intact Neurological: Reports: No New Focal Deficit Psy/Mental Status: Reports: Alert, Normal Affect, Normal Mood
[2018-07-25] MEDS: Enoxaparin 40 MG/0.4 ML Syringe SUBCUT SCH (12:11)
[2018-07-25 12:20] VITALS: BP 88/47
== END 2018-07-25 14:00 | disposition home or self-care (01) ==
LOC: MW.ED 08:40 → MW.MS 11:31 → UNDOADMOB 11:49 → MW.MS 11:49
PROVIDERS: ADMIT Internal Medicine; ATTEND Internal Medicine
DX: R07.82 Intercostal pain (principal); I95.1 Orthostatic hypotension; I10 Essential (primary) hypertension; I65.22 Occlusion and stenosis of left carotid artery; J37.0 Chronic laryngitis; Z85.89 Personal history of malignant neoplasm of other organs and systems; Z79.82 Long term (current) use of aspirin; Z79.899 Other long term (current) drug therapy
CPT/HCPCS: 36415; 80053; 81001; 84484; 85025; 93005; 93880; 96360; 96372; 99285; A9270; G0378; J1650; J7040

== ENCOUNTER 2019-04-25 13:27 | Observation (INO) | payer MEDICARE, OTHER ==
[2019-04-25] MEDS ORDERED: Sodium Chloride 0.9% 2.5 ML Syringe FLUSH PRN (13:58)
[2019-04-25] MEDS ORDERED: Sodium Chloride 0.9% 10 ML Syringe FLUSH PRN (13:58)
[2019-04-25] MEDS ORDERED: Sodium Chloride 0.9% 1,000 ML IV ONE (13:58)
[2019-04-25 14:49] LABS: BLOOD UREA NITROGEN,BUN 19 mg/dL (7.0-18.0); CARBON DIOXIDE,CO2 30.4 mmol/L (21.0-32.0); CHLORIDE,CL 103 mmol/L (98-107); GLUCOSE RANDOM 128 mg/dL (74-106); POTASSIUM,K 3.2 mmol/L (3.5-5.1); SODIUM,NA 140 mmol/L (136-145)
[2019-04-25] MEDS ORDERED: Oseltamivir 75 MG Cap PO ONE (16:12)
[2019-04-25] MEDS ORDERED: Potassium Chloride 20 MEQ Tab.ER PO ONE (16:14)
--- NOTE | 2019-04-25 16:14 | EDM.PDOC ---
ED HPI GENERAL MEDICAL PROBLEM - General Chief Complaint: Syncope Stated Complaint: PASSING OUT HEADACHE Time Seen by Provider: 04/25/19 14:20 Source of Information: Reports: Patient Bilateral Hip Pain Score (Numeric/FACES): 5 Headache Pain Score (Numeric/FACES): 2 - Related Data Allergies Allergy/AdvReac Type Severity Reaction Status Date / Time No Known Allergies Allergy Verified 04/25/19 19:17 Home Meds: Home Meds Aspirin [Adult Low Dose Aspirin EC] 81 mg PO DAILY 07/24/18 [History] Past Medical History HEENT History: Reports: Other (See Below) Cardiovascular History: Reports: None Respiratory History: Reports: None Gastrointestinal History: Reports: None Other Gastrointestinal History: occ heartburn Genitourinary History: Reports: None [employer] History: Reports: Musculoskeletal History: Reports: None Other Musculoskeletal History: right humerous Neurological History: Reports: None Psychiatric History: Reports: None Endocrine/Metabolic History: Reports: None Hematologic History: Reports: None Immunologic History: Reports: None Oncologic (Cancer) History: Reports: Squamous Cell Carcinoma Other Oncologic History: 2002-remission Dermatologic History: Reports: None - Infectious Disease History Infectious Disease History: Reports: Chicken Pox, Measles, Mumps - Past Surgical History Head Surgeries/Procedures: Reports: None Oncologic Surgical History: Reports: None, Other (See Below) Social & Family History - Family History Family Medical History: Noncontributory Cardiac: Reports: Heart Valve Replacement Respiratory: Reports: Asthma Endocrine/Metabolic: Reports: Diabetes, type II - Tobacco Use Smoking Status *Q: Never Smoker - Caffeine Use Caffeine Use: Reports: Tea - Recreational Drug Use Recreational Drug Use: No ED ROS GENERAL - Review of Systems Review Of Systems: See Below Free Text/Narrative/Comment: ROS negative for H, sz incontineuce, tongue biting ROS positive for nausea, vomiting, diarrhea - Physical Exam Exam: See Below Text/Narrative:: General: alert, well appearing, no acute distress HEENT: Atraumatic, normocephalic, pupils reactive, negative for conjunctival pallor or scleral icterus, mucous membranes moist, throat clear, Neck: supple, nontender, trachea midline. Lungs: Clear to auscultation, breath sounds equal bilaterally, chest nontender. Heart: S1S2, regular, negative for clicks, rubs, or JVD. Abdomen: Soft, nondistended, nontender. Negative for masses or hepatosplenomegaly. Negative for costovertebral tenderness. Pelvis: Stable nontender. Skin: warm, dry, good turgor. Musculoskeletal: soft compartments. Extremities: Atraumatic, negative for cords or calf pain. Neurovascular unremarkable. Neuro: no aphasia, dysarthria. No speech slur or facial droop. Nl finger to target bilat. No nystagmus.Awake, alert, oriented. Cranial nerves II through XII unremarkable. Cerebellum unremarkable. Motor and sensory unremarkable throughout. Course - Vital Signs Last Recorded V/S: Last Vital Signs Temp 98.2 F 04/25/19 20:34 Pulse 73 04/25/19 20:34 Resp 18 04/25/19 20:34 BP 156/77 H 04/25/19 20:34 Pulse Ox 92 L 04/25/19 20:34 Orthostatic Blood Pressure [ 126/63 Standing] Orthostatic Blood Pressure [ 133/62 Sitting] Orthostatic Blood Pressure [ 138/68 Supine] - Orders/Labs/Meds Orders: Active Orders 24 hr Category Date Time Status Orthostatic Vital Signs [RC] ASDIRECTED Care 04/25/19 15:25 Active CULTURE URINE [RM] Stat Lab 04/25/19 14:30 Received Sodium Chloride 0.9% [Saline Flush] Med 04/25/19 13:58 Active 10 ml FLUSH ASDIRECTED PRN Sodium Chloride 0.9% [Saline Flush] Med 04/25/19 13:58 Active 2.5 ml FLUSH ASDIRECTED PRN Saline Lock Insert [OM.PC] Stat Oth 04/25/19 13:58 Ordered Medication Orders Acetaminophen (Tylenol) 650 mg PO Q4H PRN PRN Reason: Pain (Mild 1-3)/fever Last Admin: 04/25/19 19:30 Dose: 650 mg Enoxaparin Sodium (Lovenox) 40 mg SUBCUT Q24H [facility] Last Admin: 04/25/19 17:45 Dose: 40 mg Lactated Ringer's (Ringers, Lactated) 1,000 mls @ 75 mls/hr IV ASDIRECTED BRI Stop: 04/26/19 06:04 Last Admin: 04/25/19 18:41 Dose: 75 mls/hr Ceftriaxone Sodium/Dextrose 1 (gm/ Premix) 50 mls @ 100 mls/hr IV Q24H [facility] Last Admin: 04/25/19 17:54 Dose: 100 mls/hr Ibuprofen (Motrin) 600 mg PO Q6H PRN PRN Reason: Pain (mild 1-3) Ondansetron HCl (Zofran Odt) 4 mg PO Q4H PRN PRN Reason: nausea, able to take PO Ondansetron HCl (Zofran) 4 mg IVPUSH Q4H PRN PRN Reason: Nausea Oseltamivir Phosphate (Tamiflu) 75 mg PO BID [facility] Sodium Chloride (Saline Flush) 10 ml FLUSH ASDIRECTED PRN PRN Reason: Keep Vein Open Sodium Chloride (Saline Flush) 2.5 ml FLUSH ASDIRECTED PRN PRN Reason: Keep Vein Open Last Admin: 04/25/19 19:21 Dose: 2.5 ml Temazepam (Restoril) 15 mg PO BEDTIME PRN PRN Reason: Sleep Labs: Laboratory Tests 04/25/19 04/25/19 04/25/19 Range/Units 13:56 13:56 13:56 WBC 4.22 (4.0-11.0) K/uL RBC 4.30 (4.30-5.90) M/uL Hgb 12.8 (12.0-16.0) g/dL Hct 38.9 (36.0-46.0) % MCV 90.5 (80.0-98.0) fL MCH 29.8 (27.0-32.0) pg MCHC 32.9 (31.0-37.0) g/dL RDW Std Deviation 45.6 (28.0-62.0) fl RDW Coeff of Miley 14 (11.0-15.0) % Plt Count 187 (150-400) K/uL MPV 10.00 (7.40-12.00) fL Neut % (Auto) 74.4 (48.0-80.0) % Lymph % (Auto) 14.7 L (16.0-40.0) % [place] % (Auto) 10.2 (0.0-15.0) % Eos % (Auto) 0.2 (0.0-7.0) % Baso % (Auto) 0.5 (0.0-1.5) % Neut # (Auto) 3.1 (1.4-5.7) K/uL Lymph # (Auto) 0.6 (0.6-2.4) K/uL [place] # (Auto) 0.4 (0.0-0.8) K/uL Eos # (Auto) 0.0 (0.0-0.7) K/uL Baso # (Auto) 0.0 (0.0-0.1) K/uL Nucleated RBC % 0.0 /100WBC Nucleated RBCs # 0 K/uL INR 0.98 Sodium 140 (136-145) mmol/L Potassium 3.2 L (3.5-5.1) mmol/L Chloride 103 (98-107) mmol/L Carbon Dioxide 30.4 (21.0-32.0) mmol/L BUN 19 H (7.0-18.0) mg/dL Creatinine 1.0 (0.6-1.0) mg/dL Est Cr Clr Drug Dosing 51.10 mL/min Estimated GFR (MDRD) 55.3 ml/min Glucose 128 H (74-106) mg/dL Hemoglobin A1c (4.5-6.2) % Calcium 8.9 (8.5-10.1) mg/dL Magnesium (1.8-2.4) mg/dL Total Bilirubin 0.3 (0.2-1.0) mg/dL AST 22 (15-37) IU/L ALT 17 (14-63) IU/L Alkaline Phosphatase 46 (46-116) U/L Troponin I < 0.050 (0.000-0.056) ng/mL Total Protein 6.8 (6.4-8.2) g/dL Albumin 3.2 L (3.4-5.0) g/dL Globulin 3.6 (2.6-4.0) g/dL Albumin/Globulin Ratio 0.9 (0.9-1.6) TSH 3rd Generation (0.36-3.74) uIU/mL Urine Color Urine Appearance Urine pH (5.0-8.0) Ur Specific [place] (1.001-1.035) Urine Protein (NEGATIVE) mg/dL Urine Glucose (UA) (NEGATIVE) mg/dL Urine Ketones (NEGATIVE) mg/dL Urine Occult Blood (NEGATIVE) Urine Nitrite (NEGATIVE) Urine Bilirubin (NEGATIVE) Urine Ictotest Urine Urobilinogen (<2.0) EU/dL Ur Leukocyte Esterase (NEGATIVE) U Hyaline Cast (Auto) (0-2/LPF) Urine RBC (0-2/HPF) Urine WBC (0-5/HPF) Ur Epithelial Cells (NONE-FEW) Urine Bacteria (NEGATIVE) WBC Casts (NEGATIVE) 04/25/19 04/25/19 04/25/19 Range/Units 13:56 13:56 14:30 WBC (4.0-11.0) K/uL RBC (4.30-5.90) M/uL Hgb (12.0-16.0) g/dL Hct (36.0-46.0) % MCV (80.0-98.0) fL MCH (27.0-32.0) pg MCHC (31.0-37.0) g/dL RDW Std Deviation (28.0-62.0) fl RDW Coeff of Miley (11.0-15.0) % Plt Count (150-400) K/uL MPV (7.40-12.00) fL Neut % (Auto) (48.0-80.0) % Lymph % (Auto) (16.0-40.0) % [place] % (Auto) (0.0-15.0) % Eos % (Auto) (0.0-7.0) % Baso % (Auto) (0.0-1.5) % Neut # (Auto) (1.4-5.7) K/uL Lymph # (Auto) (0.6-2.4) K/uL [place] # (Auto) (0.0-0.8) K/uL Eos # (Auto) (0.0-0.7) K/uL Baso # (Auto) (0.0-0.1) K/uL Nucleated RBC % /100WBC Nucleated RBCs # K/uL INR Sodium (136-145) mmol/L Potassium (3.5-5.1) mmol/L Chloride (98-107) mmol/L Carbon Dioxide (21.0-32.0) mmol/L BUN (7.0-18.0) mg/dL Creatinine (0.6-1.0) mg/dL Est Cr Clr Drug Dosing mL/min Estimated GFR (MDRD) ml/min Glucose (74-106) mg/dL Hemoglobin A1c 5.9 (4.5-6.2) % Calcium (8.5-10.1) mg/dL Magnesium 1.9 (1.8-2.4) mg/dL Total Bilirubin (0.2-1.0) mg/dL AST (15-37) IU/L ALT (14-63) IU/L Alkaline Phosphatase (46-116) U/L Troponin I (0.000-0.056) ng/mL Total Protein (6.4-8.2) g/dL Albumin (3.4-5.0) g/dL Globulin (2.6-4.0) g/dL Albumin/Globulin Ratio (0.9-1.6) TSH 3rd Generation 4.59 H (0.36-3.74) uIU/mL Urine Color YELLOW Urine Appearance HAZY Urine pH 5.5 (5.0-8.0) Ur Specific [place] >= 1.030 (1.001-1.035) Urine Protein 30 H (NEGATIVE) mg/dL Urine Glucose (UA) NEGATIVE (NEGATIVE) mg/dL Urine Ketones TRACE H (NEGATIVE) mg/dL Urine Occult Blood TRACE-INTACT H (NEGATIVE) Urine Nitrite NEGATIVE (NEGATIVE) Urine Bilirubin SMALL H (NEGATIVE) Urine Ictotest NEGATIVE Urine Urobilinogen 0.2 (<2.0) EU/dL Ur Leukocyte Esterase TRACE H (NEGATIVE) U Hyaline Cast (Auto) 1-5 (0-2/LPF) Urine RBC 0-3 (0-2/HPF) Urine WBC 2-6 (0-5/HPF) Ur Epithelial Cells FEW (NONE-FEW) Urine Bacteria 1+ H (NEGATIVE) WBC Casts 0-1 (NEGATIVE) Meds: Medications Generic Name Dose Route Start Last Admin Trade Name Freq PRN Reason Stop Dose Admin Acetaminophen 650 mg 04/25/19 16:34 04/25/19 19:30 Tylenol PO 650 mg Q4H PRN Administration Pain (Mild 1-3)/fever Enoxaparin Sodium 40 mg 04/25/19 16:45 04/25/19 17:45 Lovenox SUBCUT 40 mg Q24H BRI Administration Lactated Ringer's 1,000 mls @ 75 mls/hr 04/25/19 16:45 04/25/19 18:41 Ringers, Lactated IV 04/26/19 06:04 75 mls/hr ASDIRECTED BRI Administration Ceftriaxone Sodium/Dextrose 1 50 mls @ 100 mls/hr 04/25/19 16:45 04/25/19 17: 54 gm/ Premix IV 100 mls/hr Q24H BRI Administration Ibuprofen 600 mg 04/25/19 16:34 Motrin PO Q6H PRN Pain (mild 1-3) Ondansetron HCl 4 mg 04/25/19 16:34 Zofran Odt PO Q4H PRN nausea, able to take PO Ondansetron HCl 4 mg 04/25/19 16:34 Zofran IVPUSH Q4H PRN Nausea Oseltamivir Phosphate 75 mg 04/26/19 09:00 Tamiflu PO BID BRI Sodium Chloride 10 ml 04/25/19 13:58 Saline Flush FLUSH ASDIRECTED PRN Keep Vein Open Sodium Chloride 2.5 ml 04/25/19 13:58 04/25/19 19:21 Saline Flush FLUSH 2.5 ml ASDIRECTED PRN Administration Keep Vein Open Temazepam 15 mg 04/25/19 16:34 Restoril PO BEDTIME PRN Sleep Discontinued Medications Generic Name Dose Route Start Last Admin Trade Name Freq PRN Reason Stop Dose Admin Sodium Chloride 1,000 mls @ 999 mls/hr 04/25/19 13:58 04/25/19 14:42 Normal Saline IV 04/25/19 14:58 999 mls/hr .Bolus ONE Administration Lactated Ringer's 1,000 mls @ 999 mls/hr 04/25/19 21:30 04/25/19 21:38 Ringers, Lactated IV 04/25/19 22:30 999 mls/hr BOLUS ONE Administration Oseltamivir Phosphate 75 mg 04/25/19 16:12 04/25/19 17:00 Tamiflu PO 04/25/19 16:13 75 mg ONETIME ONE Administration Potassium Chloride 40 meq 04/25/19 16:14 04/25/19 17:01 Klor-Con M20 PO 04/25/19 16:15 40 meq ONETIME ONE Administration Departure - Departure Time of Disposition: 16:14 Disposition: Admitted As Inpatient 67 Clinical Impression: Syncope, Influenza A - Discharge Information Sepsis Event Note - Evaluation Sepsis Screening Result: No Definite Risk - Focused Exam Vital Signs: Vital Signs Temp Pulse Resp BP Pulse Ox 04/25/19 15:30 98.6 F 73 16 143/65 H 96 04/25/19 14:00 69 16 110/47 L 96 04/25/19 13:38 97.2 F 77 18 111/42 L 96 04/25/19 13:30 78 18 110/42 L 96 Date Exam was Performed: 04/25/19 Time Exam was Performed: 22:39 - My Orders Last 24 Hours: My Active Orders 04/25/19 13:58 Sodium Chloride 0.9% [Saline Flush] 10 ml FLUSH ASDIRECTED PRN Sodium Chloride 0.9% [Saline Flush] 2.5 ml FLUSH ASDIRECTED PRN Saline Lock Insert [OM.PC] Stat 04/25/19 14:30 CULTURE URINE [RM] Stat 04/25/19 15:25 Orthostatic Vital Signs [RC] ASDIRECTED - Assessment/Plan Last 24 Hours: My Active Orders 04/25/19 13:58 Sodium Chloride 0.9% [Saline Flush] 10 ml FLUSH ASDIRECTED PRN Sodium Chloride 0.9% [Saline Flush] 2.5 ml FLUSH ASDIRECTED PRN Saline Lock Insert [OM.PC] Stat 04/25/19 14:30 CULTURE URINE [RM] Stat 04/25/19 15:25 Orthostatic Vital Signs [RC] ASDIRECTED
[2019-04-25] MEDS ORDERED: Ondansetron 4 MG/2 ML SDV IVPUSH PRN (16:34)
[2019-04-25] MEDS ORDERED: Acetaminophen 325 MG Tab PO PRN (16:34)
[2019-04-25] MEDS ORDERED: Ibuprofen 600 MG Tab PO PRN (16:34)
[2019-04-25] MEDS ORDERED: Temazepam 15 MG Cap PO PRN (16:34)
[2019-04-25] MEDS ORDERED: Ondansetron 4 MG Tab.DIS PO PRN (16:34)
[2019-04-25] MEDS ORDERED: Lactated Ringers 1,000 ML IV SCH (16:45)
[2019-04-25] MEDS ORDERED: cefTRIAXone 1 GM in Premix Bag 1 BAG IV SCH (16:45)
[2019-04-25] MEDS ORDERED: Enoxaparin 40 MG/0.4 ML Syringe SUBCUT SCH (16:45)
--- NOTE | 2019-04-25 16:49 | PCM.HP.2 ---
<John Schmidt - Last Filed: 04/25/19 18:38> H&P History of Present Illness - General Date of Service: 04/25/19 Admit Problem/Dx: Admission Diagnosis/Problem Admission Diagnosis/Problem Syncope - History of Present Illness Initial Comments - Free Text/Narative: 68 y/o female with history of throat squamous cell carcinoma s/p chemoradiation about 10 years. Presenting today to the ER complaining of generalized weakness and syncope. Patient states that for the past 1 week she has been having loose stools. Has been feeling weak and has been having pre-syncope with tunnel vision after she gets up from a sitting or supine position. She states she has fall couple of times but has been able to get up. No nausea, vomiting. No fevers , chest pain, abdominal pain. No dysuria. Does endorse diarrhea, loose stools. States her appetite has been down for the past 1 week. States her mother has been sick at home. In the ER, Influenza positive. Orthostatics negative. Received 1 L NS. EKG sinus rhythm. No ST changes, arrhythmias. - Related Data Allergies/Adverse Reactions: Allergies Allergy/AdvReac Type Severity Reaction Status Date / Time No Known Allergies Allergy Verified 04/25/19 19:17 Home Medications: Home Meds Aspirin [Adult Low Dose Aspirin EC] 81 mg PO DAILY 07/24/18 [History] Levothyroxine [Synthroid] 50 mcg PO ACBREAKFAST #30 tab 04/26/19 [Rx] Oseltamivir [Tamiflu] 75 mg PO BID 5 Days #10 cap 04/26/19 [Rx] Past Medical History HEENT History: Reports: Other (See Below) Cardiovascular History: Reports: None Respiratory History: Reports: None Gastrointestinal History: Reports: None Other Gastrointestinal History: occ heartburn Genitourinary History: Reports: None 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: Musculoskeletal History: Reports: None Other Musculoskeletal History: right humerous Neurological History: Reports: None Psychiatric History: Reports: None Endocrine/Metabolic History: Reports: None Hematologic History: Reports: None Immunologic History: Reports: None Oncologic (Cancer) History: Reports: Squamous Cell Carcinoma Other Oncologic History: 2003-remission Dermatologic History: Reports: None - Infectious Disease History Infectious Disease History: Reports: Chicken Pox, Measles, Mumps - Past Surgical History Head Surgeries/Procedures: Reports: None Oncologic Surgical History: Reports: None, Other (See Below) Social & Family History - Family History Family Medical History: Noncontributory Cardiac: Reports: Heart Valve Replacement Respiratory: Reports: Asthma Endocrine/Metabolic: Reports: Diabetes, type II - Tobacco Use Smoking Status *Q: Never Smoker - Caffeine Use Caffeine Use: Reports: Tea - Recreational Drug Use Recreational Drug Use: No H&P Review of Systems - Review of Systems: Review Of Systems: Comprehensive ROS is negative, except as noted in HPI. Exam - Exam Exam: See Below - Vital Signs Vital Signs: Last Vital Signs Temp 36.2 C 04/25/19 13:38 Pulse 69 04/25/19 14:00 Resp 16 04/25/19 14:00 BP 110/47 L 04/25/19 14:00 Pulse Ox 96 04/25/19 14:00 Orthostatic Blood Pressure [ 126/63 Standing] Orthostatic Blood Pressure [ 133/62 Sitting] Orthostatic Blood Pressure [ 138/68 Supine] Weight: 61.235 kg - Exam General: Alert, Oriented, Cooperative HEENT: Other (dry oral mucosa) Lungs: Clear to Auscultation, Normal Respiratory Effort, Wheezing. No: Crackles Cardiovascular: Regular Rate, Regular Rhythm GI/Abdominal Exam: Normal Bowel Sounds, Soft, Non-Tender, No Distention Extremities: Normal Inspection, No Pedal Edema Skin: Warm, Dry Neuro Extensive - Mental Status: Alert, Oriented x3 - Patient Data Lab Results Last 24 hrs: Laboratory Results - last 24 hr 04/25/19 04/25/19 04/25/19 Range/Units 13:56 13:56 13:56 WBC 4.22 (4.0-11.0) K/uL RBC 4.30 (4.30-5.90) M/uL Hgb 12.8 (12.0-16.0) g/dL Hct 38.9 (36.0-46.0) % MCV 90.5 (80.0-98.0) fL MCH 29.8 (27.0-32.0) pg MCHC 32.9 (31.0-37.0) g/dL RDW Std Deviation 45.6 (28.0-62.0) fl RDW Coeff of Miley 14 (11.0-15.0) % Plt Count 187 (150-400) K/uL MPV 10.00 (7.40-12.00) fL Neut % (Auto) 74.4 (48.0-80.0) % Lymph % (Auto) 14.7 L (16.0-40.0) % Henry % (Auto) 10.2 (0.0-15.0) % Eos % (Auto) 0.2 (0.0-7.0) % Baso % (Auto) 0.5 (0.0-1.5) % Neut # (Auto) 3.1 (1.4-5.7) K/uL Lymph # (Auto) 0.6 (0.6-2.4) K/uL Henry # (Auto) 0.4 (0.0-0.8) K/uL Eos # (Auto) 0.0 (0.0-0.7) K/uL Baso # (Auto) 0.0 (0.0-0.1) K/uL Nucleated RBC % 0.0 /100WBC Nucleated RBCs # 0 K/uL INR 0.98 Sodium 140 (136-145) mmol/L Potassium 3.2 L (3.5-5.1) mmol/L Chloride 103 (98-107) mmol/L Carbon Dioxide 30.4 (21.0-32.0) mmol/L BUN 19 H (7.0-18.0) mg/dL Creatinine 1.0 (0.6-1.0) mg/dL Est Cr Clr Drug Dosing 51.10 mL/min Estimated GFR (MDRD) 55.3 ml/min Glucose 128 H (74-106) mg/dL Calcium 8.9 (8.5-10.1) mg/dL Total Bilirubin 0.3 (0.2-1.0) mg/dL AST 22 (15-37) IU/L ALT 17 (14-63) IU/L Alkaline Phosphatase 46 (46-116) U/L Troponin I < 0.050 (0.000-0.056) ng/mL Total Protein 6.8 (6.4-8.2) g/dL Albumin 3.2 L (3.4-5.0) g/dL Globulin 3.6 (2.6-4.0) g/dL Albumin/Globulin Ratio 0.9 (0.9-1.6) Urine Color Urine Appearance Urine pH (5.0-8.0) Ur Specific [place] (1.001-1.035) Urine Protein (NEGATIVE) mg/dL Urine Glucose (UA) (NEGATIVE) mg/dL Urine Ketones (NEGATIVE) mg/dL Urine Occult Blood (NEGATIVE) Urine Nitrite (NEGATIVE) Urine Bilirubin (NEGATIVE) Urine Ictotest Urine Urobilinogen (<2.0) EU/dL Ur Leukocyte Esterase (NEGATIVE) U Hyaline Cast (Auto) (0-2/LPF) Urine RBC (0-2/HPF) Urine WBC (0-5/HPF) Ur Epithelial Cells (NONE-FEW) Urine Bacteria (NEGATIVE) WBC Casts (NEGATIVE) 04/25/19 Range/Units 14:30 WBC (4.0-11.0) K/uL RBC (4.30-5.90) M/uL Hgb (12.0-16.0) g/dL Hct (36.0-46.0) % MCV (80.0-98.0) fL MCH (27.0-32.0) pg MCHC (31.0-37.0) g/dL RDW Std Deviation (28.0-62.0) fl RDW Coeff of Miley (11.0-15.0) % Plt Count (150-400) K/uL MPV (7.40-12.00) fL Neut % (Auto) (48.0-80.0) % Lymph % (Auto) (16.0-40.0) % Henry % (Auto) (0.0-15.0) % Eos % (Auto) (0.0-7.0) % Baso % (Auto) (0.0-1.5) % Neut # (Auto) (1.4-5.7) K/uL Lymph # (Auto) (0.6-2.4) K/uL Henry # (Auto) (0.0-0.8) K/uL Eos # (Auto) (0.0-0.7) K/uL Baso # (Auto) (0.0-0.1) K/uL Nucleated RBC % /100WBC Nucleated RBCs # K/uL INR Sodium (136-145) mmol/L Potassium (3.5-5.1) mmol/L Chloride (98-107) mmol/L Carbon Dioxide (21.0-32.0) mmol/L BUN (7.0-18.0) mg/dL Creatinine (0.6-1.0) mg/dL Est Cr Clr Drug Dosing mL/min Estimated GFR (MDRD) ml/min Glucose (74-106) mg/dL Calcium (8.5-10.1) mg/dL Total Bilirubin (0.2-1.0) mg/dL AST (15-37) IU/L ALT (14-63) IU/L Alkaline Phosphatase (46-116) U/L Troponin I (0.000-0.056) ng/mL Total Protein (6.4-8.2) g/dL Albumin (3.4-5.0) g/dL Globulin (2.6-4.0) g/dL Albumin/Globulin Ratio (0.9-1.6) Urine Color YELLOW Urine Appearance HAZY Urine pH 5.5 (5.0-8.0) Ur Specific [place] >= 1.030 (1.001-1.035) Urine Protein 30 H (NEGATIVE) mg/dL Urine Glucose (UA) NEGATIVE (NEGATIVE) mg/dL Urine Ketones TRACE H (NEGATIVE) mg/dL Urine Occult Blood TRACE-INTACT H (NEGATIVE) Urine Nitrite NEGATIVE (NEGATIVE) Urine Bilirubin SMALL H (NEGATIVE) Urine Ictotest NEGATIVE Urine Urobilinogen 0.2 (<2.0) EU/dL Ur Leukocyte Esterase TRACE H (NEGATIVE) U Hyaline Cast (Auto) 1-5 (0-2/LPF) Urine RBC 0-3 (0-2/HPF) Urine WBC 2-6 (0-5/HPF) Ur Epithelial Cells FEW (NONE-FEW) Urine Bacteria 1+ H (NEGATIVE) WBC Casts 0-1 (NEGATIVE) Result Diagrams: 04/25/19 13:56 04/25/19 13:56 Ricardo Results Last 24 hrs: Microbiology 04/25/19 14:25 Influenza Type A Antigen Screen - Final Nasopharyngeal Swab Positive Influenza A Ag Influenza Type B Antigen Screen - Final NEGATIVE INFLUENZA B VIRUS AG REFERENCE RANGE: NEGATIVE Sepsis Event Note - Evaluation Sepsis Screening Result: No Definite Risk - Focused Exam Vital Signs: Vital Signs Temp Pulse Resp BP Pulse Ox 04/25/19 14:00 69 16 110/47 L 96 04/25/19 13:38 36.2 C 77 18 111/42 L 96 04/25/19 13:30 78 18 110/42 L 96 Date Exam was Performed: 04/25/19 Time Exam was Performed: 18:38 Problem List Initiated/Reviewed/Updated: Yes Orders Last 24hrs: Active Orders 24 hr Category Date Time Status Patient Status [ADT] Routine ADT 04/25/19 16:34 Active EKG Documentation Completion [RC] STAT Care 04/25/19 13:58 Active Orthostatic Vital Signs [RC] ASDIRECTED Care 04/25/19 15:25 Active Oxygen Therapy [RC] PRN Care 04/25/19 16:34 Active Telemetry Monitoring [Cardiac Monitoring] [RC] . Care 04/25/19 16:43 Active DIRECTED Up With Assistance [RC] ASDIRECTED Care 04/25/19 16:34 Active VTE/DVT Education [RC] PER UNIT ROUTINE Care 04/25/19 16:34 Active Vital Signs [RC] Q4H Care 04/25/19 16:34 Active Regular Diet [DIET] Diet 04/25/19 Dinner Active C DIFFICILE AG/TOXIN W/REFLEX [RM] Routine Lab 04/25/19 16:42 Ordered CBC WITH AUTO DIFF [HEME] AM Lab 04/26/19 05:11 Ordered COMPREHENSIVE METABOLIC PN,CMP [CHEM] AM Lab 04/26/19 05:11 Ordered CULTURE URINE [RM] Stat Lab 04/25/19 14:30 Received GLYCOSYLATED HEMOGLOBIN,HGBA1C [CHEM] Stat Lab 04/25/19 13:56 Received MAGNESIUM [CHEM] Stat Lab 04/25/19 13:56 Received STOOL CULTURE/SHIGA TOXIN [MREF] Stat Lab 04/25/19 16:42 Ordered TSH [CHEM] Routine Lab 04/25/19 13:56 Received Acetaminophen [Tylenol] Med 04/25/19 16:34 Active 650 mg PO Q4H PRN Enoxaparin [Lovenox] Med 04/25/19 16:45 Active 40 mg SUBCUT Q24H Ibuprofen [Motrin] Med 04/25/19 16:34 Active 600 mg PO Q6H PRN Lactated Ringers [Ringers, Lactated] 1,000 ml Med 04/25/19 16:45 Active IV ASDIRECTED Ondansetron [Zofran ODT] Med 04/25/19 16:34 Active 4 mg PO Q4H PRN Ondansetron [Zofran] Med 04/25/19 16:34 Active 4 mg IVPUSH Q4H PRN Oseltamivir [Tamiflu] Med 04/26/19 09:00 Active 75 mg PO BID Sodium Chloride 0.9% [Saline Flush] Med 04/25/19 13:58 Active 10 ml FLUSH ASDIRECTED PRN Sodium Chloride 0.9% [Saline Flush] Med 04/25/19 13:58 Active 2.5 ml FLUSH ASDIRECTED PRN Temazepam [Restoril] Med 04/25/19 16:34 Active 15 mg PO BEDTIME PRN cefTRIAXone [Rocephin in Dextrose,Iso-Osm 1 GM/50 ML] 1 Med 04/25/19 16:45 Active gm Premix Bag 1 bag IV Q24H Saline Lock Insert [OM.PC] Stat Oth 04/25/19 13:58 Ordered Resuscitation Status Routine Resus Stat 04/25/19 16:34 Ordered Medication Orders Acetaminophen (Tylenol) 650 mg PO Q4H PRN PRN Reason: Pain (Mild 1-3)/fever Enoxaparin Sodium (Lovenox) 40 mg SUBCUT Q24H BRI Lactated Ringer's (Ringers, Lactated) 1,000 mls @ 75 mls/hr IV ASDIRECTED BRI Stop: 04/26/19 06:04 Ceftriaxone Sodium/Dextrose 1 (gm/ Premix) 50 mls @ 100 mls/hr IV Q24H BRI Ibuprofen (Motrin) 600 mg PO Q6H PRN PRN Reason: Pain (mild 1-3) Ondansetron HCl (Zofran Odt) 4 mg PO Q4H PRN PRN Reason: nausea, able to take PO Ondansetron HCl (Zofran) 4 mg IVPUSH Q4H PRN PRN Reason: Nausea Oseltamivir Phosphate (Tamiflu) 75 mg PO BID BRI Sodium Chloride (Saline Flush) 10 ml FLUSH ASDIRECTED PRN PRN Reason: Keep Vein Open Sodium Chloride (Saline Flush) 2.5 ml FLUSH ASDIRECTED PRN PRN Reason: Keep Vein Open Temazepam (Restoril) 15 mg PO BEDTIME PRN PRN Reason: Sleep Assessment/Plan Comment:: A: 1. Presyncope 2. UTI 3. Influenza positive 4. dehydration P: 1. Suspect her symptoms are secondary to her influenza on top of her UTI and diarrhea. Will monitor with telemetry. Ceftriaxone and maintenance fluids. Will treat influenza with Tamiflu. Will check stool cultures due to diarrhea. She will need outpatient Echo, Zio patch. Dispo- 1-2 days <PorfirioFrancokarly - Last Filed: 05/02/19 12:41> H&P History of Present Illness - General Admit Problem/Dx: Admission Diagnosis/Problem Admission Diagnosis/Problem Syncope Exam - Vital Signs Vital Signs: Last Vital Signs Temp 36.8 C 04/26/19 13:49 Pulse 73 04/26/19 13:49 Resp 18 04/26/19 13:49 BP 116/62 04/26/19 13:49 Pulse Ox 94 L 04/26/19 13:49 Orthostatic Blood Pressure [ 126/63 Standing] Orthostatic Blood Pressure [ 133/62 Sitting] Orthostatic Blood Pressure [ 138/68 Supine] - Patient Data Result Diagrams: 04/26/19 05:48 04/26/19 05:48 Assessment/Plan Comment:: I performed a history and physical exam of the patient and discussed management with resident. I have reviewed the residents note and agree with documented findings and plan unless otherwise specified in my note.
[2019-04-25 16:56] LABS: HEMOGLOBIN A1C 5.9 % (4.5-6.2)
--- NOTE | 2019-04-25 18:04 | CR ---
INDICATION: INFLUENZA A TECHNIQUE: Chest 1 view. COMPARISON: 11/26/15 FINDINGS: Cardiovascular and mediastinum: Heart size and vasculature are normal in caliber and appearance. Mediastinum is within normal limits. Lungs and pleural space: Lungs are clear. No sign of infiltrate or mass. No sign of pleural effusion. No pneumothorax. Bones and soft tissues: No significant findings. IMPRESSION: Unremarkable chest. Dictated by: Keshav Allen MD @ 04/25/2019 18:02:42 (Electronically Signed)
[2019-04-25] MEDS ORDERED: Lactated Ringers 1,000 ML IV ONE (21:30)
[2019-04-26 06:21] LABS: BLOOD UREA NITROGEN,BUN 11 mg/dL (7.0-18.0); CARBON DIOXIDE,CO2 32.5 mmol/L (21.0-32.0); CHLORIDE,CL 107 mmol/L (98-107); GLUCOSE RANDOM 93 mg/dL (74-106); POTASSIUM,K 4.4 mmol/L (3.5-5.1); SODIUM,NA 145 mmol/L (136-145)
[2019-04-26] MEDS ORDERED: Oseltamivir 75 MG Cap PO SCH (09:00)
[2019-04-26] MEDS ORDERED: Lactated Ringers 1,000 ML IV SCH (12:15)
--- NOTE | 2019-04-26 13:38 | PCM.DCSUM1 ---
Discharge Summary - Hospital Course HPI Initial Comments: 68 y/o female with history of throat squamous cell carcinoma s/p chemoradiation about 10 years. Presented to the ER complaining of generalized weakness and syncope. Patient states that for the past 1 week she has been having loose stools. Has been feeling weak and has been having pre-syncope with tunnel vision after she gets up from a sitting or supine position. She states she has fall couple of times but has been able to get up. No nausea, vomiting. No fevers , chest pain, abdominal pain. No dysuria. Does endorse diarrhea, loose stools. States her appetite has been down for the past 1 week. States her mother has been sick at home. In the ER, Influenza positive. Orthostatics negative. Received 1 L NS. EKG sinus rhythm. No ST changes, arrhythmias. Patient was admitted for further management. Patient received aggressive IV fluid resuscitation and started on oral Tamiflu. Her diarrhea resolved on day of admission. Dizziness improved, Telemetry was unremarkable. TSH/T4 were checked, showed hypothyroidism. Patient was started on Synthroid and asked to fu with her PCP on outpatient basis for dose management. Patient is medically stable for dc and will fu with her PCP in few weeks. - Discharge Data Discharge Date: 04/26/19 Discharge Disposition: Home, Self-Care 01 Condition: Stable - Referral to Home Health Primary Care Physician: Zach Pompa MD - Discharge Plan Prescriptions/Med Rec: Levothyroxine [Synthroid] 50 mcg PO ACBREAKFAST #30 tab Oseltamivir [Tamiflu] 75 mg PO BID 5 Days #10 cap Home Medications: Home Meds Aspirin [Adult Low Dose Aspirin EC] 81 mg PO DAILY 07/24/18 [History] Levothyroxine [Synthroid] 50 mcg PO ACBREAKFAST #30 tab 04/26/19 [Rx] Oseltamivir [Tamiflu] 75 mg PO BID 5 Days #10 cap 04/26/19 [Rx] Patient Handouts: Levothyroxine tablets, Influenza, Adult, [id number], Near- Syncope, [id number], Oseltamivir capsules Referrals: Zach Pompa MD [Primary Care Provider] - (On Sunday call the Clinic for a hospital follow-up. This was not done for you, due to it being the weekend. ) - Discharge Summary/Plan Comment DC Time >30 min.: No - Patient Data Vitals - Most Recent: Last Vital Signs Temp 36.5 C 04/26/19 12:00 Pulse 65 04/26/19 12:00 Resp 16 04/26/19 12:00 BP 86/48 L 04/26/19 12:00 Pulse Ox 93 L 04/26/19 12:00 Orthostatic Blood Pressure [ 126/63 Standing] Orthostatic Blood Pressure [ 133/62 Sitting] Orthostatic Blood Pressure [ 138/68 Supine] Weight - Most Recent: 61.235 kg I&O - Last 24 hours: Intake & Output 04/25/19 04/26/19 04/26/19 22:59 06:59 14:59 Intake Total 999 500 240 Output Total 1600 Balance 999 -1100 240 Lab Results - Last 24 hrs: Laboratory Results - last 24 hr 04/25/19 04/25/19 04/25/19 Range/Units 13:56 13:56 13:56 WBC 4.22 (4.0-11.0) K/uL RBC 4.30 (4.30-5.90) M/uL Hgb 12.8 (12.0-16.0) g/dL Hct 38.9 (36.0-46.0) % MCV 90.5 (80.0-98.0) fL MCH 29.8 (27.0-32.0) pg MCHC 32.9 (31.0-37.0) g/dL RDW Std Deviation 45.6 (28.0-62.0) fl RDW Coeff of Miley 14 (11.0-15.0) % Plt Count 187 (150-400) K/uL MPV 10.00 (7.40-12.00) fL Neut % (Auto) 74.4 (48.0-80.0) % Lymph % (Auto) 14.7 L (16.0-40.0) % Milam % (Auto) 10.2 (0.0-15.0) % Eos % (Auto) 0.2 (0.0-7.0) % Baso % (Auto) 0.5 (0.0-1.5) % Neut # (Auto) 3.1 (1.4-5.7) K/uL Lymph # (Auto) 0.6 (0.6-2.4) K/uL Milam # (Auto) 0.4 (0.0-0.8) K/uL Eos # (Auto) 0.0 (0.0-0.7) K/uL Baso # (Auto) 0.0 (0.0-0.1) K/uL Nucleated RBC % 0.0 /100WBC Nucleated RBCs # 0 K/uL INR 0.98 Sodium 140 (136-145) mmol/L Potassium 3.2 L (3.5-5.1) mmol/L Chloride 103 (98-107) mmol/L Carbon Dioxide 30.4 (21.0-32.0) mmol/L BUN 19 H (7.0-18.0) mg/dL Creatinine 1.0 (0.6-1.0) mg/dL Est Cr Clr Drug Dosing 51.10 mL/min Estimated GFR (MDRD) 55.3 ml/min Glucose 128 H (74-106) mg/dL POC Glucose (60-110) mg/dL Hemoglobin A1c (4.5-6.2) % Calcium 8.9 (8.5-10.1) mg/dL Magnesium (1.8-2.4) mg/dL Total Bilirubin 0.3 (0.2-1.0) mg/dL AST 22 (15-37) IU/L ALT 17 (14-63) IU/L Alkaline Phosphatase 46 (46-116) U/L Troponin I < 0.050 (0.000-0.056) ng/mL Total Protein 6.8 (6.4-8.2) g/dL Albumin 3.2 L (3.4-5.0) g/dL Globulin 3.6 (2.6-4.0) g/dL Albumin/Globulin Ratio 0.9 (0.9-1.6) Free T4 (0.76-1.46) ng/dL TSH 3rd Generation (0.36-3.74) uIU/mL Urine Color Urine Appearance Urine pH (5.0-8.0) Ur Specific [place] (1.001-1.035) Urine Protein (NEGATIVE) mg/dL Urine Glucose (UA) (NEGATIVE) mg/dL Urine Ketones (NEGATIVE) mg/dL Urine Occult Blood (NEGATIVE) Urine Nitrite (NEGATIVE) Urine Bilirubin (NEGATIVE) Urine Ictotest Urine Urobilinogen (<2.0) EU/dL Ur Leukocyte Esterase (NEGATIVE) U Hyaline Cast (Auto) (0-2/LPF) Urine RBC (0-2/HPF) Urine WBC (0-5/HPF) Ur Epithelial Cells (NONE-FEW) Urine Bacteria (NEGATIVE) WBC Casts (NEGATIVE) 04/25/19 04/25/19 04/25/19 Range/Units 13:56 13:56 14:30 WBC (4.0-11.0) K/uL RBC (4.30-5.90) M/uL Hgb (12.0-16.0) g/dL Hct (36.0-46.0) % MCV (80.0-98.0) fL MCH (27.0-32.0) pg MCHC (31.0-37.0) g/dL RDW Std Deviation (28.0-62.0) fl RDW Coeff of Miley (11.0-15.0) % Plt Count (150-400) K/uL MPV (7.40-12.00) fL Neut % (Auto) (48.0-80.0) % Lymph % (Auto) (16.0-40.0) % Milam % (Auto) (0.0-15.0) % Eos % (Auto) (0.0-7.0) % Baso % (Auto) (0.0-1.5) % Neut # (Auto) (1.4-5.7) K/uL Lymph # (Auto) (0.6-2.4) K/uL Milam # (Auto) (0.0-0.8) K/uL Eos # (Auto) (0.0-0.7) K/uL Baso # (Auto) (0.0-0.1) K/uL Nucleated RBC % /100WBC Nucleated RBCs # K/uL INR Sodium (136-145) mmol/L Potassium (3.5-5.1) mmol/L Chloride (98-107) mmol/L Carbon Dioxide (21.0-32.0) mmol/L BUN (7.0-18.0) mg/dL Creatinine (0.6-1.0) mg/dL Est Cr Clr Drug Dosing mL/min Estimated GFR (MDRD) ml/min Glucose (74-106) mg/dL POC Glucose (60-110) mg/dL Hemoglobin A1c 5.9 (4.5-6.2) % Calcium (8.5-10.1) mg/dL Magnesium 1.9 (1.8-2.4) mg/dL Total Bilirubin (0.2-1.0) mg/dL AST (15-37) IU/L ALT (14-63) IU/L Alkaline Phosphatase (46-116) U/L Troponin I (0.000-0.056) ng/mL Total Protein (6.4-8.2) g/dL Albumin (3.4-5.0) g/dL Globulin (2.6-4.0) g/dL Albumin/Globulin Ratio (0.9-1.6) Free T4 (0.76-1.46) ng/dL TSH 3rd Generation 4.59 H (0.36-3.74) uIU/mL Urine Color YELLOW Urine Appearance HAZY Urine pH 5.5 (5.0-8.0) Ur Specific [place] >= 1.030 (1.001-1.035) Urine Protein 30 H (NEGATIVE) mg/dL Urine Glucose (UA) NEGATIVE (NEGATIVE) mg/dL Urine Ketones TRACE H (NEGATIVE) mg/dL Urine Occult Blood TRACE-INTACT H (NEGATIVE) Urine Nitrite NEGATIVE (NEGATIVE) Urine Bilirubin SMALL H (NEGATIVE) Urine Ictotest NEGATIVE Urine Urobilinogen 0.2 (<2.0) EU/dL Ur Leukocyte Esterase TRACE H (NEGATIVE) U Hyaline Cast (Auto) 1-5 (0-2/LPF) Urine RBC 0-3 (0-2/HPF) Urine WBC 2-6 (0-5/HPF) Ur Epithelial Cells FEW (NONE-FEW) Urine Bacteria 1+ H (NEGATIVE) WBC Casts 0-1 (NEGATIVE) 04/26/19 04/26/19 04/26/19 Range/Units 05:48 05:48 05:48 WBC 3.33 L (4.0-11.0) K/uL RBC 3.98 L (4.30-5.90) M/uL Hgb 11.8 L (12.0-16.0) g/dL Hct 35.7 L (36.0-46.0) % MCV 89.7 (80.0-98.0) fL MCH 29.6 (27.0-32.0) pg MCHC 33.1 (31.0-37.0) g/dL RDW Std Deviation 45.2 (28.0-62.0) fl RDW Coeff of Miley 14 (11.0-15.0) % Plt Count 166 (150-400) K/uL MPV 9.90 (7.40-12.00) fL Neut % (Auto) 58.3 (48.0-80.0) % Lymph % (Auto) 26.4 (16.0-40.0) % Milam % (Auto) 12.0 (0.0-15.0) % Eos % (Auto) 2.1 (0.0-7.0) % Baso % (Auto) 1.2 (0.0-1.5) % Neut # (Auto) 1.9 (1.4-5.7) K/uL Lymph # (Auto) 0.9 (0.6-2.4) K/uL Milam # (Auto) 0.4 (0.0-0.8) K/uL Eos # (Auto) 0.1 (0.0-0.7) K/uL Baso # (Auto) 0.0 (0.0-0.1) K/uL Nucleated RBC % 0.0 /100WBC Nucleated RBCs # 0 K/uL INR Sodium 145 (136-145) mmol/L Potassium 4.4 (3.5-5.1) mmol/L Chloride 107 (98-107) mmol/L Carbon Dioxide 32.5 H (21.0-32.0) mmol/L BUN 11 (7.0-18.0) mg/dL Creatinine 0.7 (0.6-1.0) mg/dL Est Cr Clr Drug Dosing 73.01 mL/min Estimated GFR (MDRD) > 60.0 ml/min Glucose 93 (74-106) mg/dL POC Glucose (60-110) mg/dL Hemoglobin A1c (4.5-6.2) % Calcium 8.3 L (8.5-10.1) mg/dL Magnesium (1.8-2.4) mg/dL Total Bilirubin 0.3 (0.2-1.0) mg/dL AST 19 (15-37) IU/L ALT 19 (14-63) IU/L Alkaline Phosphatase 40 L (46-116) U/L Troponin I (0.000-0.056) ng/mL Total Protein 5.9 L (6.4-8.2) g/dL Albumin 2.8 L (3.4-5.0) g/dL Globulin 3.1 (2.6-4.0) g/dL Albumin/Globulin Ratio 0.9 (0.9-1.6) Free T4 0.69 L (0.76-1.46) ng/dL TSH 3rd Generation (0.36-3.74) uIU/mL Urine Color Urine Appearance Urine pH (5.0-8.0) Ur Specific [place] (1.001-1.035) Urine Protein (NEGATIVE) mg/dL Urine Glucose (UA) (NEGATIVE) mg/dL Urine Ketones (NEGATIVE) mg/dL Urine Occult Blood (NEGATIVE) Urine Nitrite (NEGATIVE) Urine Bilirubin (NEGATIVE) Urine Ictotest Urine Urobilinogen (<2.0) EU/dL Ur Leukocyte Esterase (NEGATIVE) U Hyaline Cast (Auto) (0-2/LPF) Urine RBC (0-2/HPF) Urine WBC (0-5/HPF) Ur Epithelial Cells (NONE-FEW) Urine Bacteria (NEGATIVE) WBC Casts (NEGATIVE) 04/26/19 Range/Units 11:49 WBC (4.0-11.0) K/uL RBC (4.30-5.90) M/uL Hgb (12.0-16.0) g/dL Hct (36.0-46.0) % MCV (80.0-98.0) fL MCH (27.0-32.0) pg MCHC (31.0-37.0) g/dL RDW Std Deviation (28.0-62.0) fl RDW Coeff of Miley (11.0-15.0) % Plt Count (150-400) K/uL MPV (7.40-12.00) fL Neut % (Auto) (48.0-80.0) % Lymph % (Auto) (16.0-40.0) % Milam % (Auto) (0.0-15.0) % Eos % (Auto) (0.0-7.0) % Baso % (Auto) (0.0-1.5) % Neut # (Auto) (1.4-5.7) K/uL Lymph # (Auto) (0.6-2.4) K/uL Milam # (Auto) (0.0-0.8) K/uL Eos # (Auto) (0.0-0.7) K/uL Baso # (Auto) (0.0-0.1) K/uL Nucleated RBC % /100WBC Nucleated RBCs # K/uL INR Sodium (136-145) mmol/L Potassium (3.5-5.1) mmol/L Chloride (98-107) mmol/L Carbon Dioxide (21.0-32.0) mmol/L BUN (7.0-18.0) mg/dL Creatinine (0.6-1.0) mg/dL Est Cr Clr Drug Dosing mL/min Estimated GFR (MDRD) ml/min Glucose (74-106) mg/dL POC Glucose 120 H (60-110) mg/dL Hemoglobin A1c (4.5-6.2) % Calcium (8.5-10.1) mg/dL Magnesium (1.8-2.4) mg/dL Total Bilirubin (0.2-1.0) mg/dL AST (15-37) IU/L ALT (14-63) IU/L Alkaline Phosphatase (46-116) U/L Troponin I (0.000-0.056) ng/mL Total Protein (6.4-8.2) g/dL Albumin (3.4-5.0) g/dL Globulin (2.6-4.0) g/dL Albumin/Globulin Ratio (0.9-1.6) Free T4 (0.76-1.46) ng/dL TSH 3rd Generation (0.36-3.74) uIU/mL Urine Color Urine Appearance Urine pH (5.0-8.0) Ur Specific [place] (1.001-1.035) Urine Protein (NEGATIVE) mg/dL Urine Glucose (UA) (NEGATIVE) mg/dL Urine Ketones (NEGATIVE) mg/dL Urine Occult Blood (NEGATIVE) Urine Nitrite (NEGATIVE) Urine Bilirubin (NEGATIVE) Urine Ictotest Urine Urobilinogen (<2.0) EU/dL Ur Leukocyte Esterase (NEGATIVE) U Hyaline Cast (Auto) (0-2/LPF) Urine RBC (0-2/HPF) Urine WBC (0-5/HPF) Ur Epithelial Cells (NONE-FEW) Urine Bacteria (NEGATIVE) WBC Casts (NEGATIVE) [place] Results - Last 24 hrs: Microbiology 04/25/19 17:20 Anaerobic Blood Culture - Final Blood - Venous - Lab Draw 04/25/19 14:25 Influenza Type A Antigen Screen - Final Nasopharyngeal Swab Positive Influenza A Ag Influenza Type B Antigen Screen - Final NEGATIVE INFLUENZA B VIRUS AG REFERENCE RANGE: NEGATIVE Med Orders - Current: Current Medications Acetaminophen (Tylenol) 650 mg PO Q4H PRN PRN Reason: Pain (Mild 1-3)/fever Last Admin: 04/25/19 19:30 Dose: 650 mg Enoxaparin Sodium (Lovenox) 40 mg SUBCUT Q24H [facility] Last Admin: 04/25/19 17:45 Dose: 40 mg Ceftriaxone Sodium/Dextrose 1 (gm/ Premix) 50 mls @ 100 mls/hr IV Q24H [facility] Last Admin: 04/25/19 17:54 Dose: 100 mls/hr Lactated Ringer's (Ringers, Lactated) 1,000 mls @ 999 mls/min IV STAT [facility] Last Admin: 04/26/19 12:19 Dose: 999 mls/min Ibuprofen (Motrin) 600 mg PO Q6H PRN PRN Reason: Pain (mild 1-3) Last Admin: 04/26/19 08:39 Dose: 600 mg Ondansetron HCl (Zofran Odt) 4 mg PO Q4H PRN PRN Reason: nausea, able to take PO Ondansetron HCl (Zofran) 4 mg IVPUSH Q4H PRN PRN Reason: Nausea Oseltamivir Phosphate (Tamiflu) 75 mg PO BID [facility] Last Admin: 04/26/19 08:39 Dose: 75 mg Sodium Chloride (Saline Flush) 10 ml FLUSH ASDIRECTED PRN PRN Reason: Keep Vein Open Sodium Chloride (Saline Flush) 2.5 ml FLUSH ASDIRECTED PRN PRN Reason: Keep Vein Open Last Admin: 04/25/19 19:21 Dose: 2.5 ml Temazepam (Restoril) 15 mg PO BEDTIME PRN PRN Reason: Sleep Discontinued Medications Sodium Chloride (Normal Saline) 1,000 mls @ 999 mls/hr IV .Bolus ONE Stop: 04/25/19 14:58 Last Admin: 04/25/19 14:42 Dose: 999 mls/hr Lactated Ringer's (Ringers, Lactated) 1,000 mls @ 75 mls/hr IV ASDIRECTED BRI Stop: 04/26/19 06:04 Last Admin: 04/25/19 18:41 Dose: 75 mls/hr Lactated Ringer's (Ringers, Lactated) 1,000 mls @ 999 mls/hr IV BOLUS ONE Stop: 04/25/19 22:30 Last Admin: 04/25/19 21:38 Dose: 999 mls/hr Oseltamivir Phosphate (Tamiflu) 75 mg PO ONETIME ONE Stop: 04/25/19 16:13 Last Admin: 04/25/19 17:00 Dose: 75 mg Potassium Chloride (Klor-Con M20) 40 meq PO ONETIME ONE Stop: 04/25/19 16:15 Last Admin: 04/25/19 17:01 Dose: 40 meq
[2019-04-26] MEDS ORDERED: Levothyroxine 25 MCG Tab PO ONE (13:41)
[2019-04-26 13:50] VITALS: BP 116/62; PULSE 73
== END 2019-04-26 14:30 | disposition home or self-care (01) ==
LOC: MW.ED 13:27 → MW.MS 16:34 → UNDOADMOB 16:34
PROVIDERS: ADMIT Student in an Organized Health Care Education/Training Program; ATTEND Student in an Organized Health Care Education/Training Program
DX: R55 Syncope and collapse (principal); N39.0 Urinary tract infection, site not specified; J10.1 Influenza due to other identified influenza virus with other respiratory manifestations; E86.0 Dehydration; R19.7 Diarrhea, unspecified; E03.9 Hypothyroidism, unspecified; Z92.21 Personal history of antineoplastic chemotherapy; Z85.20 Personal history of malignant neoplasm of unspecified respiratory organ; Z79.899 Other long term (current) drug therapy; Z79.82 Long term (current) use of aspirin; Z79.890 Hormone replacement therapy
CPT/HCPCS: 36415; 71045; 80053; 81001; 82962; 83036; 83735; 84439; 84443; 84484; 85025; 85610; 87040; 87086; 87804; 93005; 96361; 96372; 96374; 99285; A9270; G0378; J0696; J1650; J7030; J7120; 96360; 99283

== ENCOUNTER 2019-09-11 11:17 | Day surgery (SDC) | payer MEDICARE, OTHER ==
[~2019-09-11 11:17] MED LIST: Lactated Ringers 1,000 ML IV SCH; Midazolam 1 MG/ML 2 ML SDV ONE; Propofol 200 MG/20 ML SDV ONE; Sodium Chloride 0.9% 10 ML SDV IV PRN; Sodium Chloride 0.9% 10 ML Syringe FLUSH PRN; Sodium Chloride 0.9% 2.5 ML Syringe FLUSH PRN; fentaNYL 100 MCG/2 ML SDV ONE
--- NOTE | 2019-09-11 12:38 | PCM.PREANE ---
Preanesthetic Assessment - Anesthesia/Transfusion/Family Hx Anesthesia History: Prior Anesthesia Without Reaction Family History of Anesthesia Reaction: No Transfusion History: No Prior Transfusion(s) - Review of Systems General: No Symptoms Pulmonary: No Symptoms Cardiovascular: No Symptoms Gastrointestinal: No Symptoms Neurological: No Symptoms Other: Reports: None - Physical Assessment NPO Status Date: 09/11/19 NPO Status Time: 09:00 Vital Signs: Last Vital Signs Temp 97.9 F 09/11/19 11:30 Pulse 79 09/11/19 11:30 Resp 16 09/11/19 11:30 BP 94/46 L 09/11/19 11:30 Pulse Ox 99 09/11/19 11:30 Height: 5 ft 6 in Weight: 63.503 kg ASA Class: 2 Mental Status: Alert & Oriented x3 Airway Class: Mallampati = 2 Dentition: Reports: Normal Dentition ROM/Head Extension: Full Lungs: Clear to Auscultation, Normal Respiratory Effort Cardiovascular: Regular Rate, Regular Rhythm - Allergies Allergies/Adverse Reactions: Allergies Allergy/AdvReac Type Severity Reaction Status Date / Time No Known Allergies Allergy Verified 09/08/19 12:01 - Blood Blood Available: No - Anesthesia Plan Pre-Op Medication Ordered: None - Acknowledgements Anesthesia Type Planned: General Anesthesia Pt an Appropriate Candidate for the Planned Anesthesia: Yes Alternatives and Risks of Anesthesia Discussed w Pt/Guardian: Yes Pt/Guardian Understands and Agrees with Anesthesia Plan: Yes Additional Comments: PMH: anemia, hx of ra rx for cancer on base of tongue, uvular changes from rarx. denies htn- that is an error in the medical record PLANA: tiva PreAnesthesia Questionnaire HEENT History: Reports: Other (See Below) Other HEENT History: wears glasses Cardiovascular History: Reports: Other (See Below) Other Cardiovascular History: hypotension Respiratory History: Reports: None Gastrointestinal History: Reports: Other (See Below) Other Gastrointestinal History: occ heartburn Genitourinary History: Reports: None [employer] History: Reports: Musculoskeletal History: Reports: Fracture Other Musculoskeletal History: hx fx right humerous Neurological History: Reports: None Psychiatric History: Reports: None Endocrine/Metabolic History: Reports: Hypothyroidism, Osteopenia Hematologic History: Reports: Iron Deficiency Immunologic History: Reports: None Oncologic (Cancer) History: Reports: Squamous Cell Carcinoma Other Oncologic History: squamous cell carcinoma of tongue 2003-remission Dermatologic History: Reports: None - Infectious Disease History Infectious Disease History: Reports: Chicken Pox, Measles, Mumps - Past Surgical History Head Surgeries/Procedures: Reports: None HEENT Surgical History: Reports: Detached Retina, Tonsillectomy Other HEENT Surgeries/Procedures: partial detached retina, hx squamous cell cancer of tongue Cardiovascular Surgical History: Reports: None Respiratory Surgical History: Reports: None GI Surgical History: Reports: Colonoscopy Female Surgical History: Reports: Section, Tubal Ligation Endocrine Surgical History: Reports: None Neurological Surgical History: Reports: None Musculoskeletal Surgical History: Reports: Other (See Below) Other Musculoskeletal Surgeries/Procedures:: Hx ostopenia. Oncologic Surgical History: Reports: Other (See Below) Other Oncologic Surgeries/Procedures: modified radical neck disection Dermatological Surgical History: Reports: None - SUBSTANCE USE Smoking Status *Q: Never Smoker Recreational Drug Use History: No - HOME MEDS Home Medications: Home Meds Aspirin [Adult Low Dose Aspirin EC] 81 mg PO DAILY 07/24/18 [History] Levothyroxine [Synthroid] 50 mcg PO ACBREAKFAST #30 tab 04/26/19 [Rx] Ashwagandha 500 mg PO DAILY 09/08/19 [History] Calcium Carbonate [Calcium] 500 mg PO DAILY 09/08/19 [History] Cholecalciferol (Vitamin D3) [Vitamin D3] 25 mcg PO DAILY 09/08/19 [History] Green Tea White Bird Extract [Green Tea] 2 tab PO DAILY 09/08/19 [History] [place]ish-3/DHA/Epa/Fish Oil [Fish Oil 1,000 mg Softgel] 1,000 mg PO DAILY 09/08/19 [History] - CURRENT (IN HOUSE) MEDS Current Meds: Current Medications Lactated Ringer's (Ringers, Lactated) 1,000 mls @ 125 mls/hr IV ASDIRECTED BRI Last Admin: 09/11/19 11:50 Dose: 125 mls/hr Documented by: Sodium Chloride (Saline Flush) 10 ml FLUSH ASDIRECTED PRN PRN Reason: Keep Vein Open Sodium Chloride (Saline Flush) 2.5 ml FLUSH ASDIRECTED PRN PRN Reason: Keep Vein Open Sodium Chloride (Saline Flush) 10 ml FLUSH ASDIRECTED PRN PRN Reason: Keep Vein Open Sodium Chloride (Saline Flush) 2.5 ml FLUSH ASDIRECTED PRN PRN Reason: Keep Vein Open Sodium Chloride (Normal Saline) 10 ml IV ASDIRECTED PRN PRN Reason: IV Use Discontinued Medications Fentanyl (Sublimaze) Confirm Administered Dose 100 mcg .ROUTE .STK-MED ONE Stop: 09/11/19 07:29 Midazolam HCl (Versed 1 Mg/Ml) Confirm Administered Dose 2 mg .ROUTE .STK-MED ONE Stop: 09/11/19 07:29 Propofol (Diprivan 20 Ml) Confirm Administered Dose 400 mg .ROUTE .STK-MED ONE Stop: 09/11/19 07:29
--- NOTE | 2019-09-11 14:20 | PCM.OPNOTE ---
- General Post-Op/Procedure Note Date of Surgery/Procedure: 09/11/19 Operative Procedure(s): Diagnostic EGD and colonoscopy Findings: sigmoid colon polyp Pre Op Diagnosis: Normocytic anemia Post-Op Diagnosis: sigmoid colon polyp Anesthesia Technique: MAC Primary Surgeon: Kaylee Gonzales Condition: Good
[2019-09-11 14:43] VITALS: PULSE 57
--- NOTE | 2019-09-11 15:01 | PCM.POSTAN ---
POST ANESTHESIA ASSESSMENT - MENTAL STATUS Mental Status: Alert, Oriented - VITAL SIGNS Vital Signs: Last Vital Signs Temp 97.7 F 09/11/19 14:13 Pulse 57 L 09/11/19 14:42 Resp 12 09/11/19 14:42 BP 116/51 L 09/11/19 14:42 Pulse Ox 96 09/11/19 14:42 - RESPIRATORY Respiratory Status: Respiratory Rate WNL, Airway Patent, O2 Saturation Stable - CARDIOVASCULAR CV Status: Pulse Rate WNL, Blood Pressure Stable - GASTROINTESTINAL GI Status: No Symptoms - POST OP HYDRATION Hydration Status: Adequate & Stable
--- NOTE | 2019-09-11 15:01 | PCM48HPAN ---
Post Anesthesia Note - EVALUATION WITHIN 48HRS OF ANESTHETIC Vital Signs in Normal Range: Yes Patient Participated in Evaluation: Yes Respiratory Function Stable: Yes Airway Patent: Yes Cardiovascular Function Stable: Yes Hydration Status Stable: Yes Pain Control Satisfactory: Yes Nausea and Vomiting Control Satisfactory: Yes Mental Status Recovered: Yes Vital Signs: Last Vital Signs Temp 97.7 F 09/11/19 14:13 Pulse 57 L 09/11/19 14:42 Resp 12 09/11/19 14:42 BP 116/51 L 09/11/19 14:42 Pulse Ox 96 09/11/19 14:42
[2019-09-11 15:39] VITALS: BP 118/64
--- NOTE | 2019-09-11 19:10 | OR ---
SURGEON: KAYLEE GONZALES MD DATE OF PROCEDURE: 09/11/2019 PREOPERATIVE DIAGNOSIS: Normocytic anemia. POSTOPERATIVE DIAGNOSIS: Sigmoid colon polyp. PROCEDURES PERFORMED: Diagnostic esophagogastroduodenoscopy and colonoscopy. PRIMARY SURGEON: Kaylee Gonzales MD ANESTHESIA: MAC. INSTRUMENT USED: Olympus endoscope and colonoscope. EXTENT OF EXAM: To the second portion of duodenum, to the cecum. PREPARATION: Good. LIMITATIONS: None. INDICATIONS FOR EXAMINATION: The patient is a 68-year-old female who presents with a normocytic anemia. Her primary care provider sent her here to be able to rule out a GI source for bleeding. The patient and I discussed the procedure, expected perioperative course, and risks. She verbalized understanding and wishes to proceed. PROCEDURE IN DETAIL: The patient was brought into the endoscopy suite and placed in a left lateral decubitus position. A time-out was completed verifying the patient's name, age, date of , allergies, and procedure to be performed. Monitored anesthesia care was induced and a bite block was placed in the patient's mouth. Continuous oxygen was provided via face mask throughout the procedure. After adequate sedation was achieved, a well-lubricated endoscope was placed in the patient's mouth and advanced under direct visualization to the level of the second portion of duodenum. This appeared normal and a photograph was taken. The scope was then fully withdrawn while examining the color, texture, anatomy, and integrity of the mucosa of the upper GI tract. The duodenum appeared normal. The scope was then brought in the stomach and a photograph was taken of the pylorus as well as the GE junction. Both appeared normal. The gastric mucosa appeared normal with no signs of gross inflammation or ulceration. Biopsies were taken of the gastric antrum, body, and fundus and sent for histologic review and H. pylori testing. The scope was then brought into the distal esophagus. A photograph was taken of the Z-line. This appeared normal. The esophageal mucosa was free of pathology. The scope was removed and this portion of the procedure terminated. A digital rectal exam was performed. This exam was within normal limits. A well-lubricated colonoscope was inserted in the rectum and advanced under direct visualization to the level of cecum. The cecum was identified by both visual and anatomic landmarks. A photograph was taken of the cecal cap as well as with the scope retroflexed within the cecum. The scope was then fully withdrawn while examining the color, texture, anatomy, and integrity of the mucosa from the cecum to the anal canal. The patient was found to have a small sessile sigmoid colon polyp. This was removed in piecemeal fashion using cold biopsy forceps. The scope was then brought into the rectum and retroflexed to allow visualization of the anal canal opening. This appeared normal and a photograph was taken. The scope was then straightened out and fully withdrawn. The cecum to anus time was 6 minutes. The patient tolerated the procedure well and was transferred to the PACU in stable condition. ENDOSCOPIC DIAGNOSIS: Sigmoid colon polyp. RECOMMENDATIONS: Follow up in clinic in 2 weeks. CORNELIA ADORNO /[id number]
== END 2019-09-11 15:25 | disposition home or self-care (01) ==
LOC: MW.SDS 11:17
PROVIDERS: ATTEND Surgery
DX: K63.5 Polyp of colon (principal); K29.00 Acute gastritis without bleeding; K29.50 Unspecified chronic gastritis without bleeding; D50.9 Iron deficiency anemia, unspecified; I10 Essential (primary) hypertension; E03.9 Hypothyroidism, unspecified; Z79.82 Long term (current) use of aspirin; Z79.890 Hormone replacement therapy; Z79.899 Other long term (current) drug therapy
CPT/HCPCS: 43239; 45380; J2250; J2704; J3010; J7120

== ENCOUNTER 2021-08-23 06:40 | Day surgery (SDC) | payer MEDICARE, OTHER ==
[2021-08-23] MEDS ORDERED: fentaNYL 50 MCG/ML SDV IVPUSH PRN (06:58)
[2021-08-23] MEDS ORDERED: HYDROmorphone 1 MG/ML Syringe IVPUSH PRN (06:58)
[2021-08-23] MEDS ORDERED: Ondansetron 4 MG/2 ML SDV IVPUSH PRN (06:58)
[2021-08-23] MEDS ORDERED: Metoclopramide 10 MG/2 ML SDV IVPUSH PRN (06:58)
[2021-08-23] MEDS ORDERED: Naloxone 0.4 MG/ML SDV IVPUSH PRN (06:58)
[2021-08-23] MEDS ORDERED: Albuterol 0.083% 2.5 MG/3 ML Neb Soln NEB PRN (06:58)
[2021-08-23] MEDS ORDERED: Octyl 2-Cyanoacrylate 1 Tube ONE (07:18)
[2021-08-23] MEDS ORDERED: Bupivacaine 0.5% 30 ML SDV ONE (07:18)
[2021-08-23] MEDS ORDERED: Propofol 200 MG/20 ML SDV ONE (07:34)
[2021-08-23] MEDS ORDERED: fentaNYL 250 MCG/5 ML SDV ONE (07:34)
[2021-08-23] MEDS ORDERED: ePHEDrine 50 MG/ML SDV ONE (08:51)
[2021-08-23] MEDS ORDERED: Ondansetron 4 MG/2 ML SDV ONE (08:51)
[2021-08-23] MEDS ORDERED: fentaNYL 100 MCG/2 ML SDV ONE (08:51)
[2021-08-23] MEDS ORDERED: Sugammadex Sodium 200 MG/2 ML VIAL ONE (08:51)
[2021-08-23] MEDS ORDERED: Glycopyrrolate 0.2 MG/ML SDV ONE (08:51)
[2021-08-23 11:39] VITALS: BP 148/64; PULSE 52
== END 2021-08-23 12:15 | disposition home or self-care (01) ==
LOC: MW.SDS 06:40
PROVIDERS: ATTEND Surgery
DX: K80.10 Calculus of gallbladder with chronic cholecystitis without obstruction (principal); K66.0 Peritoneal adhesions (postprocedural) (postinfection); I10 Essential (primary) hypertension; E03.9 Hypothyroidism, unspecified; Z79.890 Hormone replacement therapy; Z79.82 Long term (current) use of aspirin; Z79.899 Other long term (current) drug therapy; Z98.890 Other specified postprocedural states
CPT/HCPCS: 47562; A9270; J0131; J2405; J2704; J3010; J3490; 00790

== ENCOUNTER 2021-09-05 11:54 | Emergency (ER) | payer MEDICARE, OTHER ==
[2021-09-05] MEDS ORDERED: Magnesium Sulfate/Water 2 GM in Premix Bag 1 BAG IV ONE (12:45)
[2021-09-05] MEDS ORDERED: Lactated Ringers 1,000 ML IV STA (13:03)
[2021-09-05] MEDS ORDERED: Ondansetron 4 MG/2 ML SDV IVPUSH ONE (13:03)
[2021-09-05 13:24] LABS: BLOOD UREA NITROGEN,BUN 12 mg/dL (7.0-18.0); CARBON DIOXIDE,CO2 25.4 mmol/L (21.0-32.0); CHLORIDE,CL 92 mmol/L (98-107); GLUCOSE RANDOM 182 mg/dL (74-106); POTASSIUM,K 3.4 mmol/L (3.5-5.1); SODIUM,NA 132 mmol/L (136-145)
[2021-09-05 13:32] LABS: ESTIMATED GFR 61 mL/min (>60)
[2021-09-05] MEDS ORDERED: Iopamidol 755 MG/ML 500 ML Multipack Bottle IVPUSH STA (14:16)
[2021-09-05] MEDS ORDERED: Aspirin 81 MG Tab.Chew ONE (15:45)
[2021-09-05] MEDS ORDERED: Aspirin 81 MG Tab.Chew PO ONE (15:47)
[2021-09-05] MEDS ORDERED: Enoxaparin 100 MG/1 ML Syringe SUBCUT STA (16:36)
[2021-09-05 22:44] VITALS: BP 123/71; PULSE 80
== END 2021-09-05 23:00 ==
LOC: MW.ED 11:54
DX: S12.091A Other nondisplaced fracture of first cervical vertebra, initial encounter for closed fracture (principal); U07.1 COVID-19; E03.9 Hypothyroidism, unspecified; I21.4 Non-ST elevation (NSTEMI) myocardial infarction; R55 Syncope and collapse; E83.42 Hypomagnesemia; I25.2 Old myocardial infarction; Z79.82 Long term (current) use of aspirin; Z79.899 Other long term (current) drug therapy; Z20.822 Contact with and (suspected) exposure to COVID-19
CPT/HCPCS: 36415; 51702; 70450; 70496; 70498; 71045; 72125; 80053; 82947; 83735; 84443; 84484; 85025; 85610; 93005; 96365; 96366; 96372; 96375; 99291; A9270; J1650; J2405; J3475; J7120; Q9967; U0002

== ENCOUNTER 2024-06-03 06:38 | Day surgery (SDC) | payer MEDICARE, OTHER ==
[2024-06-03] MEDS: Lactated Ringers 1,000 ML IV SCH (07:00)
[2024-06-03] MEDS ORDERED: Propofol 200 MG/20 ML SDV ONE (07:09)
[2024-06-03] MEDS ORDERED: Lidocaine 2% 5 ML SDV ONE (07:09)
[2024-06-03] MEDS ORDERED: Naloxone 0.4 MG/ML SDV IVPUSH PRN (08:12)
[2024-06-03] MEDS ORDERED: Metoclopramide 10 MG/2 ML SDV IVPUSH PRN (08:12)
[2024-06-03] MEDS ORDERED: Albuterol 0.083% 2.5 MG/3 ML Neb Soln NEB PRN (08:12)
[2024-06-03] MEDS ORDERED: Morphine 2 MG/ML SYRINGE IVPUSH PRN (08:12)
[2024-06-03] MEDS ORDERED: fentaNYL 50 MCG/ML SDV IVPUSH PRN (08:12)
[2024-06-03] MEDS ORDERED: HYDROmorphone 1 MG/ML Syringe IVPUSH PRN (08:12)
[2024-06-03] MEDS ORDERED: Ondansetron 4 MG/2 ML SDV IVPUSH PRN (08:12)
[2024-06-03] MEDS ORDERED: Phenylephrine HCl In 0.9% NaCl 1 MG/10 ML Syringe IVPUSH PRN (08:12)
[2024-06-03 12:41] VITALS: BP 167/64; PULSE 65
== END 2024-06-03 10:12 | disposition home or self-care (01) ==
LOC: MW.SDS 06:38
PROVIDERS: ATTEND Surgery
DX: T85.598A Other mechanical complication of other gastrointestinal prosthetic devices, implants and grafts, initial encounter (principal); R13.10 Dysphagia, unspecified; E78.00 Pure hypercholesterolemia, unspecified; E03.9 Hypothyroidism, unspecified; I11.0 Hypertensive heart disease with heart failure; I50.9 Heart failure, unspecified; Z79.82 Long term (current) use of aspirin; Z79.899 Other long term (current) drug therapy
CPT/HCPCS: 43246; J2003; J2704; J7120; 00731; 99100